=== PATIENT | male | born 1940 ===

== ENCOUNTER 2024-07-29 12:41 | Inpatient (IN) | payer OTHER, MEDICARE ==
--- OUTSIDE RECORDS SUMMARY | 2024-07-31 13:43 | XMS REPORT | Continuity of Care Document ---
Author Name Unknown Address [address] [place] [address] Organization [facility] [place] Address [address] [place] [address] Care Team Providers Care Seasonal Tax Preparer Name Role Phone Aydee Larsen Primary Care Physician Aydee Larsen Attending Clinician Unavail able Ford Daniels DO Attending Clinician [phone] Celestine Clinton MD Attending Clinician [phone] Hyacinth Tsang MD Attending Clinician CELESTINE CLINTON Attending Clinician Unavailable Hyacinth Tsang MD Admitting Clinician [phone] HYACINTH TSANG Admitting Clinician Unavailable Payers Payer Name Policy Type Policy Number Effective Date Expirati on Date Source [employer] MEDICARE SUPPLEMENT [id number] 2024 00:00:00 Problems Condition Name Condition Details Condition Category Status Onset Date Resolution Date Last Treatment Date Treating Clinician Comments Source Obesity (BMI 30-39.9) Obesity (BMI 30-39.9) Disease Active 07-31 00:00: 00 [facility] Coronary artery disease involving [place] coronary artery of [place] heart with angina pectoris Coronary artery disease involving [place] coronary artery of [place] heart with angina pectoris Disease Active 07-24 00:00: 00 [facility] Elevated troponin I level Elevated troponin I level Disease Active 07-24 00:00: 00 [facility] Elevated brain natriureti c peptide (BNP) level Elevated brain natriureti c peptide (BNP) level Disease Active 07-24 00:00: 00 [facility] Essential hypertensi on Essential hypertensi on Disease Active 07-24 00:00: 00 [facility] Dyslipidem ia Dyslipidem ia Disease Active 07-24 00:00: 00 [facility] 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 Disease Active 07-24 00:00: 00 [facility] Acute respirator y failure with hypoxemia Acute respirator y failure with hypoxemia Disease Active 07-23 00:00: 00 [facility] [id number] Congestive heart failure, unspecifie d HF chronicity , unspecifie d heart failure type Problem [facility] [id number] Overweight Problem Com [facility] [id number] Paroxysmal a-fib Problem [facility] Acute on chronic systolic heart failure Acute on chronic systolic (congestiv e) heart failure Problem [facility] Hypertensi ve heart failure Hypertensi ve heart disease with heart failure Problem [facility] [id number] Compressio n fracture of L1 vertebra with delayed healing, subsequent encounter Problem [facility] [id number] Dysphagia, unspecifie d type Problem [facility] [id number] Mild protein-ca raji malnutriti on Problem [facility] [id number] Mixed hyperlipid emia Problem [facility] [id number] Stented coronary artery Problem [facility] [id number] Seasonal allergies Problem [facility] [id number] Aortic valve stenosis, etiology of cardiac valve disease unspecifie d Problem [facility] [id number] Chronic kidney disease, unspecifie d Problem [facility] [id number] Gastroesop hageal reflux disease without esophagiti s Problem [facility] [id number] Normocytic anemia Problem [facility] [id number] Subclinica l hypothyroi dism Problem [facility] [id number] Vitamin D deficiency Problem [facility] Allergies, Adverse Reactions, Alerts Allergy Name Allergy Type Status Severity Reaction(s) Onset Date Inactive Date Treating Clinician Comments Source Midazola m Propensi ty to adverse reaction s Active Other - See comments 07-23 00:00: 00 Hyper and hypotensi on, irregular breathing [facility] MIDAZOLA M DRUG INGREDI Active Other-Cmnt 07-23 00:00: 00 [facility] midazola m midazola m Active Unknown [facility] Social History Social Habit Start Date Stop Date Quantity Comments Source History of Tobacco Use [facility] Sexual orientation [facility] History of Social function 2024-07-24 00:00:00 2024-07-24 00:00:00 [facility] Sex assigned at 1940 00:00:00 1940 00:00:00 [facility] Smoking Status Start Date Stop Date Source Tobacco smoking consumption unknown [facility] Former Smoker 2024-06-02 00:00:00 2024-06-02 00:00:00 [facility] Medications Ordered Medication Name Filled Medication Name Start Date Stop Date Current Medication? Ordering Clinician Indication Dosage Frequency Signature (SIG) Comments Components Source levothyroxi ne 25 mcg tablet 07-31 13:02: 54 Yes 25ug Take 1 tablet by mouth every morning. [facility] clopidogreL 75 mg tablet 07-31 13:02: 54 Yes 75mg Take 1 tablet by mouth in the morning. [facility] cetirizine (ZYRTEC) 10 mg tablet 07-31 13:02: 54 Yes 10mg Take 1 tablet by mouth in the morning. [facility] atorvastati n 40 mg tablet 07-31 13:02: 54 Yes 40mg Take 1 tablet by mouth at bedtime. [facility] doxazosin 2 mg tablet 07-31 13:02: 54 Yes 2mg Take 1 tablet by mouth at bedtime. [facility] meclizine 25 mg tablet 07-31 13:02: 54 Yes 25mg Take 1 tablet by mouth 2 (two) times daily as needed for Dizziness. [facility] ondansetron 4 mg tablet 07-31 13:02: 54 Yes 4mg Take 1 tablet by mouth every 8 (eight) hours. [facility] polyethylen e glycol 3350 (MIRALAX) 17 gram powder 07-31 13:02: 54 Yes 1{packe t} Take 1 Packet by mouth once daily as needed for Constipati on. [facility] amiodarone 200 mg tablet 07-31 13:02: 54 Yes 200mg Take 1 tablet by mouth in the morning. [facility] furosemide 20 mg tablet 07-31 13:02: 51 07-31 00:00 :00 No 20mg Take 1 tablet by mouth every Wednesday, Wednesday and Wednesday. [facility] isosorbide dinitrate 30 mg tablet 07-31 13:02: 51 07-31 00:00 :00 No 60mg Take 2 tablets by mouth in the morning. [facility] amLODIPine 5 mg tablet 07-31 13:02: 51 07-31 00:00 :00 No 5mg Take 1 tablet by mouth in the morning and 1 tablet in the evening. [facility] apixaban (ELIQUIS) 5 mg tablet 07-31 13:02: 51 07-31 00:00 :00 No 5mg Take 1 tablet by mouth in the morning and 1 tablet in the evening. [facility] metoprolol tartrate 25 mg tablet 07-31 13:02: 51 07-31 00:00 :00 No 25mg Take 1 tablet by mouth in the morning and 1 tablet in the evening. [facility] fluticasone 27.5 mcg/actuati on nasal spray 07-31 13:: 07-31 00:00 :00 No 1{spray } Use 1 [place] in each nostril in the morning and 1 [place] in the evening. [facility] triamcinolo ne 0.5 % cream 07-31 13:02: 07-31 00:00 :00 No 1{squir t} Apply 1 Squirt to area(s) 3 (three) times daily as needed for Rash or Itching (Apply to scrotal area.). [facility] diphenhydrA MINE (BENADRYL ALLERGY) 50 mg tablet 07-31 13:: 07-31 00:00 :00 No 50mg Take 1 tablet by mouth at bedtime as needed for Sleep. [facility] furosemide 40 mg tablet 07-31 00:00: 00 08-31 04:59 :00 Yes [id number] 40mg Take 1 tablet by mouth every morning and evening for 30 days. [facility] melatonin 3 mg tablet 07-31 00:00: 00 08-31 04:59 :00 Yes [id number] 3mg Take 1 tablet by mouth at bedtime for 30 days. [facility] pantoprazol e 2 mg/mL oral suspension 07-31 00:00: 00 08-31 04:59 :00 Yes [id number] 40mg Take 20 mL by mouth in the morning and 20 mL in the evening. Do all this for 30 days. [facility] cefdinir 300 mg capsule 07-31 00:00: 00 08-05 04:59 :00 Yes [id number] 300mg Take 1 capsule by mouth in the morning and 1 capsule in the evening. Do all this for 4 days. [facility] cefTRIAXone (ROCEPHIN) 1,000 mg in water for injection, sterile 10 mL IV Push cefTRIAXone (ROCEPHIN) 1,000 mg in water for injection, sterile 10 mL IV Push 07-30 17:00: 00 07-31 18:02 :54 Yes 1000mg 1,000 mg, Intravenou s, Q24H ABX, 5 doses, First dose on Wed07/30/24 at 1200, Last dose on [place] 08/03/24 at 1200, 10 mL, Reason for Anti-Infec tive: Documented Infection, Documented Infection Site: Urine, Duration of therapy: Other (days), Other (days): [address] [facility] pantoprazol e (PROTONIX) 2 mg/mL oral suspension 40 mg pantoprazol e (PROTONIX) 2 mg/mL oral suspension 40 mg 07-30 13:15: 00 Yes 40mg 40 mg, Oral, BID, First dose on [place] 07/30/24 at 0815, Until Discontinu ed, Routine [facility] furosemide (LASIX) tablet 40 mg furosemide (LASIX) tablet 40 mg 07-29 22:00: 00 Yes 40mg 40 mg, Oral, QAM+PM, First dose (after last modificati on) on [facility] 07/29/24 at 1700, Until Discontinu ed, Routine [facility] acetaminoph en (TYLENOL) tablet 650 mg acetaminoph en (TYLENOL) tablet 650 mg 07-29 17:45: 00 07-29 20:43 :00 Yes 650mg 650 mg, Oral, ONCE, 1 dose, On [facility] 07/29/24 at 1245, Routine [facility] pantoprazol e (PROTONIX) EC tablet 40 mg pantoprazol e (PROTONIX) EC tablet 40 mg 07-29 16:45: 00 07-30 13:12 :19 Yes 40mg 40 mg, Oral, BID, First dose on [facility] 07/29/24 at 1145, Until Discontinu ed, Routine [facility] spironolact one (ALDACTONE) tablet 25 mg spironolact one (ALDACTONE) tablet 25 mg 07-29 15:30: 00 Yes 25mg 25 mg, Oral, DAILY, First dose on [facility] 07/29/24 at 1030, Until Discontinu ed, [facility] escitalopra m oxalate (LEXAPRO) tablet 10 mg escitalopra m oxalate (LEXAPRO) tablet 10 mg 07-29 14:00: 00 Yes 10mg 10 mg, Oral, DAILY, First dose on Wed07/29/24 at 0900, Until Discontinu ed, Routine [facility] furosemide (LASIX) tablet 40 mg furosemide (LASIX) tablet 40 mg 07-29 14:00: 00 07-29 15:20 :41 Yes 40mg 40 mg, Oral, DAILY, First dose on Wed07/29/24 at 0900, Until Discontinu ed, Routine [facility] melatonin (MELATIN) tablet 3 mg melatonin (MELATIN) tablet 3 mg 07-29 02:00: 00 Yes 3mg 3 mg, Oral, QHS, First dose on Wed07/28/24 at 2100, Until Discontinu ed, Routine [facility] ferrous sulfate 300 mg (60 mg iron)/5 mL solution 300 mg ferrous sulfate 300 mg (60 mg iron)/5 mL solution 300 mg 07-28 14:45: 00 Yes 300mg 300 mg, Oral, DAILY, First dose on Wed07/28/24 at 0945, Until Discontinu ed, Routine [facility] Potassium Bicarb-Citr ic Acid (EFFER-K) effervescen t tablet 40 mEq Potassium Bicarb-Citr ic Acid (EFFER-K) effervescen t tablet 40 mEq 07-28 00:30: 00 07-28 01:11 :00 Yes 40meq 40 mEq, Oral, ONCE, 1 dose, On Wed07/27/24 at 1930, Routine [facility] amiodarone (PACERONE) tablet 100 mg amiodarone (PACERONE) tablet 100 mg 07-27 14:00: 00 07-31 18:02 :54 Yes 100mg 100 mg, Oral, DAILY, First dose on Wed07/27/24 at 0900, Until Discontinu ed, Routine [facility] aspirin chewable tablet 81 mg aspirin chewable tablet 81 mg 07-27 14:00: 00 07-29 16:27 :31 Yes 81mg 81 mg, Oral, DAILY, First dose on Wed07/27/24 at 0900, Until Discontinu ed, Routine [facility] sennosides- docusate sodium (SENOKOT-S) 8.6-50 mg per tablet 1 tablet sennosides- docusate sodium (SENOKOT-S) 8.6-50 mg per tablet 1 tablet 07-26 16:30: 00 Yes 1{tbl} 1 tablet, Oral, DAILY, First dose on Wed07/26/24 at 1130, Until Discontinu ed, Routine [facility] polyethylen e glycol 3350 powder 17 g polyethylen e glycol 3350 powder 17 g 07-26 16:30: 00 07-31 18:02 :54 Yes 17g 17 g, Oral, DAILY, First dose on Wed07/26/24 at 1130, Until Discontinu ed, Routine [facility] furosemide (LASIX) injection 20 mg furosemide (LASIX) injection 20 mg 07-26 14:00: 00 07-28 19:47 :50 Yes 20mg 20 mg, Slow IV Push, DAILY, First dose (after last modificati on) on Wed07/26/24 at 0900, Until Discontinu ed, Routine [facility] ondansetron (ZOFRAN) tablet 4 mg 07-25 19:45: 00 07-31 18:02 :54 No 4mg 4 mg, Oral, Q6HPRN, Starting on Wed07/25/24 at 1445, Until Wed07/31/24 at 1302, Routine, Nausea and Vomiting (N/V) [facility] acetaminoph en (TYLENOL) tablet 650 mg acetaminoph en (TYLENOL) tablet 650 mg 07-25 18:15: 00 07-25 18:52 :00 Yes 650mg 650 mg, Oral, ONCE, 1 dose, On Wed07/25/24 at 1315, Routine [facility] aspirin EC tablet 81 mg aspirin EC tablet 81 mg 07-25 15:15: 00 07-27 13:23 :25 Yes 81mg 81 mg, Oral, DAILY, First dose on Wed07/25/24 at 1015, Until Discontinu ed, Routine [facility] levothyroxi ne (SYNTHROID) tablet 25 mcg levothyroxi ne (SYNTHROID) tablet 25 mcg 07-25 11:00: 00 07-31 18:02 :54 Yes 25ug 25 mcg, Oral, QAM-0600, First dose on Wed07/25/24 at 0600, Until Discontinu ed, Routine [facility] doxazosin (CARDURA) tablet 2 mg doxazosin (CARDURA) tablet 2 mg 07-25 02:00: 00 07-31 18:02 :54 Yes 2mg 2 mg, Oral, QHS, First dose on Wed07/24/24 at 2100, Until Discontinu ed, Routine [facility] atorvastati n (LIPITOR) tablet 40 mg atorvastati n (LIPITOR) tablet 40 mg 07-25 02:00: 00 07-31 18:02 :54 Yes 40mg 40 mg, Oral, QHS, First dose on Wed07/24/24 at 2100, Until Discontinu ed, Routine [facility] perflutren protein-A microsphr (OPTISON) injection 3 mL 07-24 15:00: 00 07-24 15:00 :00 No [id number] 3mL 3 mL, IV Push, ONCE, 1 dose, On Wed07/24/24 at 1000, Routine [facility] cetirizine (ZYRTEC) tablet 10 mg cetirizine (ZYRTEC) tablet 10 mg 07-24 14:00: 00 07-31 18:02 :54 Yes 10mg 10 mg, Oral, DAILY, First dose on Wed07/24/24 at 0900, Until Discontinu ed, Routine [facility] clopidogreL (PLAVIX) 75 mg tablet 75 mg clopidogreL (PLAVIX) 75 mg tablet 75 mg 07-24 14:00: 00 07-31 18:02 :54 Yes 75mg 75 mg, Oral, DAILY, First dose on Wed07/24/24 at 0900, Until Discontinu ed, Routine [facility] sodium ferric gluconate (FERRLECIT) 125 mg in NaCl 0.9% (NS) 100 mL IV piggyback sodium ferric gluconate (FERRLECIT) 125 mg in NaCl 0.9% (NS) 100 mL IV piggyback 07-24 14:00: 00 07-26 15:15 :00 Yes 125mg 125 mg, IV Piggyback, DAILY, 3 doses, First dose on Wed07/24/24 at 0900, Last dose on Wed07/26/24 at 0900, Administer over 60 Minutes, 100 mL [facility] furosemide (LASIX) injection 40 mg furosemide (LASIX) injection 40 mg 07-24 14:00: 00 07-25 15:11 :26 Yes 40mg 40 mg, Slow IV Push, DAILY, First dose on Wed07/24/24 at 0900, Until Discontinu ed, Routine [facility] levothyroxi ne (SYNTHROID) injection 18 mcg levothyroxi ne (SYNTHROID) injection 18 mcg 07-24 14:00: 00 07-24 23:14 :32 Yes 18ug 18 mcg, Intravenou s, DAILY, First dose on Wed07/24/24 at 0900, Until Discontinu ed, Indication : Patient NPO >= 5 days [facility] ondansetron (ZOFRAN) tablet 4 mg ondansetron (ZOFRAN) tablet 4 mg 07-24 11:00: 00 07-25 19:31 :58 Yes 4mg 4 mg, Oral, Q8H, First dose on Wed07/24/24 at 0600, Until Discontinu ed, Routine [facility] meclizine (ANTIVERT) tablet 25 mg 07-24 06:07: 37 07-31 18:02 :54 No 25mg [facility] alum-mag hydroxide-s imeth (MAG-AL PLUS) 200-200-20 mg/5 mL suspension 30 mL alum-mag hydroxide-s imeth (MAG-AL PLUS) 200-200-20 mg/5 mL suspension 30 mL 07-24 05:52: 48 07-31 18:02 :54 Yes 30mL 30 mL, Oral, Q4HPRN, Starting on Wed07/24/24 at 0052, Until Wed07/31/24 at 1302, Routine, Indigestio n [facility] heparin 25,000 Units/250 mL (Premixed Bag) in 0.45 % NS heparin 25,000 Units/250 mL (Premixed Bag) in 0.45 % NS 07-24 04:15: 00 07-24 13:56 :03 Yes 0U/h 0-1,600 Units/hr (0-16 mL/hr), IV Infusion, CONTINUOUS , Starting on Wed07/23/24 at 2315, Initiate infusion at 950 Units/hr (calculate d at 12 units/kg/h r, rounded to the closest 50 units) DO NOT Exceed the MAXIMUM 1,000 units/hr for initiation of heparin infusion. CAUTION - If LMWH given in ER, AVOID bolus and start next dose/drip 12 hrs after ER dosage. Must program rate using programmab le infusion pump. Check with the ordering provider first prior to any administra tion should the patient be on existing/a dditional anticoagul ant therapy. Range, Dosing and Testing - aPTT < 40: Bolus 3000 units, increase rate 100 units/hr. - aPTT 40-49: Increase rate 50 units/hr. - aPTT 50-70: NO CHANGE. - aPTT 71-85: Decrease rate 50 units/hr. - aPTT 86-100: Hold 30 minutes, decrease rate 100 units/hr. - aPTT 101-150: Hold 60 minutes, decrease rate 150 units/hr. - aPTT > 150: Hold 60 minutes, decrease rate 300 units/hr. Check aPTT 6 hours after initiation , then Q6H after every change, aPTT Q12H once therapeuti c levels are reached. DO NOT ADJUST INITIAL BOLUS OR INITIAL INFUSION RATE. [facility] HEPARIN SODIUM (PORCINE) 1,000 UNIT/ML BOLUS ACS ORDER SET [id number] 2102-0 4-21 04:15: 00 07-24 05:36 :00 Yes 4000U 4,000 Units, IV Push, ONCE, 1 dose, On Wed07/23/24 at 2315, [place] [facility] aspirin chewable tablet 162 mg aspirin chewable tablet 162 mg 07-24 04:15: 00 07-24 05:34 :00 Yes 162mg 162 mg, Oral, ONCE, 1 dose, On Wed07/23/24 at 2315[facility]IX[facility] injection 40 mg 07-24 03:45: 00 07-24 04:14 :00 No 40mg 40 mg, IV Push, ONCE, 1 dose, On Wed07/23/24 at 2245, [facility] iop[facility] (ISOVUE 370-500 mL) injection 65 mL 07-24 03:00: 00 07-24 03:00 :00 No [id number] 65mL 65 mL, Intravenou s, ONCE, 1 dose, On [place] 07/23/24 at 2200, Routine [facility] ondansetron (ZOFRAN (PF)) injection 4 mg 07-24 01:00: 00 07-24 00:49 :00 No 4mg 4 mg, Slow IV Push, ONCE, 1 dose, On [place] 07/23/24 at 2000, Administer over 2-5 Minutes, 2 mL [facility] Levothyroxi ne Sodium 25 MCG Levothyroxi ne Sodium 25 MCG 3-03 00:00: 00 No QD Levothyrox ine Sodium 25 MCG Fluticasone Propionate 50 MCG/ACT Fluticasone Propionate 50 MCG/ACT No 1{spray _in_eac h_nostr il} BID Fluticason e Propionate 50 MCG/ACT MiraLax 17 GM/SCOOP MiraLax 17 GM/SCOOP No QD MiraLax 17 GM/SCOOP Senna 8.6 MG Senna 8.6 MG No 1{table t} BID Senna 8.6 MG Clopidogrel Bisulfate 75 MG Clopidogrel Bisulfate 75 MG No 1{table t} QD Clopidogre l Bisulfate 75 MG Isosorbide Mononitrate ER 30 MG Isosorbide Mononitrate ER 30 MG No 2{table ts} QD Isosorbide Mononitrat e ER 30 MG Zofran Zofran No 1{patch _to_ski n} Zofran Metoprolol Succinate ER 50 MG Metoprolol Succinate ER 50 MG No .5{tabl et} BID Metoprolol Succinate ER 50 MG Furosemide 20 MG Furosemide 20 MG No 1{table t} QD Furosemide 20 MG Eliquis 5 MG Eliquis 5 MG No 1{table t} BID Eliquis 5 MG amLODIPine Besylate 5 MG amLODIPine Besylate 5 MG No 1{table t} BID amLODIPine Besylate 5 MG Amiodarone HCl 200 MG Amiodarone HCl 200 MG No 1{table t} QD Amiodarone HCl 200 MG Doxazosin Mesylate 2 MG Doxazosin Mesylate 2 MG No 1{table t} QD Doxazosin Mesylate 2 MG Benadryl Allergy 25 MG Benadryl Allergy 25 MG No 1{table t_at_be dtime_a s_neede d} QD Benadryl Allergy 25 MG Atorvastati n Calcium 40 MG Atorvastati n Calcium 40 MG No 1{table t} QD Atorvastat in Calcium 40 MG Meclizine HCl 25 MG Meclizine HCl 25 MG No 1{table t_as_ne eded} Meclizine HCl 25 MG Cetirizine HCl 10 MG Cetirizine HCl 10 MG No 1{table t} QD Cetirizine HCl 10 MG Vital Signs Vital Name Observation Time Observation Value Comments S ource Systolic blood pressure 2024-07-31 17:00:00 150 mm[Hg] [facility] Diastolic blood pressure 2024-07-31 17:00:00 63 mm[Hg] [facility] Heart rate 2024-07-31 17:00:00 67 /min [facility] Respiratory rate 2024-07-31 17:00:00 19 /min [facility] Oxygen saturation in Arterial blood by Pulse oximetry 2024-07-31 17:00:00 93 /min [facility] Body temperature 2024-07-31 16:26:00 36.78 Celia [facility] Body weight 2024-07-31 08:32:00 84.5 kg [facility] BMI 2024-07-31 08:32:00 30.07 kg/m2 [facility] Body height 2024-07-24 05:31:00 167.6 cm [facility] height 2024-05-29 09:15:00 65 [in_i] Commo n [facility] weight 2024-05-29 09:15:00 166 [lb_av] Comm on [facility] temperature 2024-05-29 09:15:00 97.5 [degF] Com mon [facility] bmi 2024-05-29 09:15:00 27.62 kg/m2 Comm on [facility] oximetry 2024-05-29 09:15:00 93 % Commo n [facility] blood pressure systolic 2024-05-29 09:15:00 128 mm[Hg] [facility] blood pressure diastolic 2024-05-29 09:15:00 70 mm[Hg] [facility] Procedures Procedure Date / Time Performed Performing Clinician Source N-TERMINAL PRO-BNP 2024-07-31 09:31:00 Celestine Clinton [facility] MAGNESIUM 2024-07-31 09:31:[facility] (NA, K, CL, CO2, GLUCOSE, BUN, CREATININE, CA) 2024-07-31 09:31:00 Celestine Clinton [facility] CBC WITHOUT DIFF 2024-07-31 09:31:00 [facility]24-[facility]-30 14:30[facility] 2024-07-30 10:47:00 Celestine Clinton [facility] MAGNESIUM 2024-07-30 10:47:00 [facility] (NA, K, CL, CO2, GLUCOSE, BUN, CREATININE, CA) 2024-07-30 10:47:00 Celestine Clinton [facility] CBC WITH DIFF 2024-07-30 10:47:00 Celestine Clinton [facility] URINALYSIS 2024-07-29 23:20:00 [facility] 2024-07-29 20:59:[facility] 2024-07-29 18:00:00 Celestine Clinton [facility] CBC WITHOUT DIFF 2024-07-29 15:31:[address] [address] N-TERMINAL PRO-BNP 2024-07-29 10:54:00 Marshal Friedman [facility] BASIC METABOLIC PANEL (NA, K, CL, CO2, GLUCOSE, BUN, CREATININE, CA) 2024-07-29 10:54:00 Julien [facility] CBC WITH DIFF 2024-07-29 10:54:00 [place] [facility] XR CHEST 1 VW 2024-07-28 20:56:25 [facility] N-TERMINAL PRO-BNP 2024-07-28 07:28:00 Marshal Friedman [facility] MAGNESIUM 2024-07-28 07:28:00 [place] [facility] BASIC METABOLIC PANEL (NA, K, CL, CO2, GLUCOSE, BUN, CREATININE, CA) 2024-07-28 07:28:00 Julien [facility] CBC WITH DIFF 2024-07-28 07:28:00 [place] [facility] ACUTE CARE ARTERIAL BLOOD GAS 2024-07-27 20:44:00 Julien [facility] MAGNESIUM 2024-07-27 08:39:00 [place] [facility] BASIC METABOLIC PANEL (NA, K, CL, CO2, GLUCOSE, BUN, CREATININE, CA) 2024-07-27 08:39:00 Julien [facility] LIPID PANEL ([id number])(TOTAL CHOLESTEROL, TRIGLYCERIDES, HDL) 2024-07-27 08:39:00 Marshal Friedman [facility] CBC WITH DIFF 2024-07-27 08:39:00 [facility] N-TERMINAL PRO-BNP 2024-07-26 08:11:00 [facility] 2024-07-26 08:11:00 [facility] BASIC METABOLIC PANEL (NA, K, CL, CO2, GLUCOSE, BUN, CREATININE, CA) 2024-07-26 08:11:00 [facility] CBC WITHOUT DIFF 2024-07-26 08:11:00 Hyacinth Tsang [facility] ACUTE CARE VENOUS BLOOD GAS 2024-07-26 08:09:00 [facility] OCCULT (GUAIAC) BLOOD 2024-07-25 23:41:00 Honey Tsang [facility] TRANSFUSE PACKED RBC 2024-07-25 19:25:00 Ramon Clinton [facility] PREPARE PACKED RBC 2024-07-25 19:13:58 [facility] ABORH CONFIRMATION (LAB ONLY) 2024-07-25 16:33:00 [facility] ACUTE CARE VENOUS BLOOD GAS 2024-07-25 16:31:00 [facility] HB ABO GROUPING 2024-07-25 14:23:[address] [facility] PHOSPHORUS 2024-07-25 09:33:00 [facility] MAGNESIUM 2024-07-25 09:33:00 [facility] BASIC METABOLIC PANEL (NA, K, CL, CO2, GLUCOSE, BUN, CREATININE, CA) 2024-07-25 09:33:00 [facility] CBC WITHOUT DIFF 2024-07-25 09:33:00 Hyacinth Tsang [facility] GLYCOSYLATED HEMOGLOBIN (A1C) 2024-07-25 09:33:00 [facility] TROPONIN I 2024-07-25 04:10:00 [facility] TROPONIN I 2024-07-24 22:25:00 [facility] ACUTE CARE ARTERIAL BLOOD GAS 2024-07-24 20:02:00 [facility]IN I 2024-07-24 15:27:00 [facility] ACTIVATED PARTIAL THRMPLAS HELEN 2024-07-24 15:27:00 Priscilla [facility] AC ABG + LACTIC ACID 2024-07-24 14:54:00 Mary Beth [facility] TRANSTHORACIC ECHO (TTE) COMPLETE W/ CONTRAST 2024-07-24 14:30:00 Priscilla [facility] ACUTE CARE ARTERIAL BLOOD GAS 2024-07-24 10:43:00 Prisc[facility] URINALYSIS 2024-07-24 09:19:00 Priscilla [facility] URINE CULTURE 2024-07-24 09:19:00 Priscilla [facility] FERRITIN SERUM 2024-07-24 09:14:00 Priscilla [facility] TRANSFERRIN 2024-07-24 09:14:00 [facility] IRON BINDING CAPACITY 2024-07-24 09:14:00 Priscilla [facility] TROPONIN I 2024-07-24 09:14:00 Priscilla [facility] BASIC METABOLIC PANEL (NA, K, CL, CO2, GLUCOSE, BUN, CREATININE, CA) 2024-07-24 09:14:00 Priscilla [facility] IRON PANEL 2024-07-24 09:14:00 Priscilla [facility] CBC WITH DIFF 2024-07-24 09:14:00 Priscilla [facility] INFLUENZA A/B RSV COVID NAAT 2024-07-24 05:21:00 Priscilla [facility] LAB ONLY COVID INTERPRETATION 2024-07-24 05:21:00 Priscilla [facility] PROTHROMBIN TIME / INR 2024-07-24 05:19:00 Priscilla [facility] ACTIVATED PARTIAL THRMPLAS HELEN 2024-07-24 05:19:00 Priscilla [facility] ACUTE CARE ARTERIAL BLOOD GAS 2024-07-24 02:13:00 Ford Daniels [facility] CT CHEST PULMONARY ANGIOGRAM 2024-07-24 02:05:17 [facility] XR CHEST 1 VW 2024-07-24 01:25:26 Ford Daniels [facility] HB ECG ROUTINE & RHYTHM STRIP 2024-07-24 00:46:06 [facility] N-TERMINAL PRO-BNP 2024-07-24 00:41:00 [facility] TROPONIN I 2024-07-24 00:41:00 Ford Daniels [facility] COMP. METABOLIC PANEL (71183) 2024-07-24 00:41:00 Ford Daniels [facility] CBC WITH DIFF 2024-07-24 00:41:00 Ford Daniels [facility] CRITICAL CARE 2024-07-24 00:20:00 Ford Daniels [facility] Plan of Care Planned Activity Planned Date Details Comments Source Medication 2024-08-01 00:00:00 escitalopram oxalate 10 mg tablet [code = 900951] [facility] Medication 2024-08-01 00:00:00 ferrous sulfate 300 mg (60 mg iron)/5 mL solution [code = 044090] [facility] Medication 2024-08-01 00:00:00 sennosides-docusate sodium 8.6-50 mg per tablet [code = 243983] [facility] Medication 2024-08-01 00:00:00 spironolactone 25 mg tablet [code = 095266] [facility] Encounters Start Date/Time End Date/Time Encounter Type Admission Type Attending Clinicians Care Facility Care Department Encounter ID Source 2024-05-29 09:50:01 Outpatient Aydee Larsen [facility]LMLC STLMLC [id number] [facility] 2024-07-23 19:32:00 2024-07-31 13:00:00 Hospital Encounter Ford DanielsCelestineHyacinth [facility] [id number] [facility] 2024-07-23 19:32:00 2024-07-31 13:00:00 Inpatient X ADOLPH CL[facility]ONLANI [facility] [id number] [facility] 2024-07-28 00:00:00 2024-07-28 00:00:00 (TEL) STLMLC STLMLC [id number] [facility] 2024-06-27 00:00:00 2024-06-27 00:00:00 (TEL) STLMLC STLMLC [id number] [facility] 2024-06-19 00:00:00 2024-06-19 00:00:00 (TEL) STLMLC STLMLC [id number] [facility] 2024-06-16 00:00:00 2024-06-16 00:00:00 (TEL) STLMLC STLMLC [id number] [facility] 2024-06-05 00:00:00 2024-06-05 00:00:00 (TEL) STLMLC STLMLC [id number] [facility] 2024-06-05 00:00:00 2024-06-05 00:00:00 OFFICE VISIT ESTAB PT LEVEL 4 STLMLC STLMLC [id number] [facility] 2024-05-30 00:00:00 2024-05-30 00:00:00 (TEL) STLMLC STLMLC [id number] [facility] 2024-05-29 00:00:00 2024-05-29 00:00:00 OFFICE VISIT NEW PT LEVEL 5 STLMLC STLMLC [id number] [facility] 2024-05-29 00:00:00 2024-05-29 00:00:00 (TEL) STLMLC STLMLC [id number] [facility] 2024-05-29 00:00:00 2024-05-29 00:00:00 (TEL) STLMLC STLMLC [id number] [facility] 2024-05-29 00:00:00 2024-05-29 00:00:00 (TEL) STLMLC STLMLC [id number] [facility] Results Test Description Test Time Test Comments Results Result Co mments Source [facility] [id number] 01:19:10EXAM: XR CHEST 1 VW CLINICAL HISTORY: SOB Portable COMPARISON: XR CHEST 1 VW on DOS: 07/23/24 XR CHEST 1 VW on DOS: 07/23/24 TECHNIQUE: Single frontal view of the chest performed. FINDINGS: Shallow inspiration. ?Moderate bibasilar atelectasis and small [facility] Arterial Blood Gas.2024-07-27 20:50:34* Test Item Value Reference Range Interpretation Comme nts PH (test code = 2) 7.39 7.35-7.45 PCO2 (test code = 7944239823) 55 35-45 H PO2 (test code = 7408015757) 72 80-100 L HCO3 (test code = 0191635057) 32 22-26 H BE (test code = 3266675201) 6.3 -3.0-3.0 H Lab Interpretation (test cod e = 77097-8) Abnormal [facility] HospitalN-Terminal Ify-[id number] 09:27:17* Test Item Value Reference Range Interpretation Comme nts NT-proBNP (test code = 88983-6) 1240 pg/mL <=125 ANDREW (test code = ANDREW) Result Indeterminate-Consid er causes of NT-proBNP elevation other than Heart failure such as acute coronary syndrome, pulmonary embolism, pulmonary hypertension, sepsis, stroke, and renal dysfunction. Lab Interpretation (test code = 18811-5) Abnormal [facility] Metabolic Panel (NA, K, CL, CO2, GLUCOSE, BUN, CREATININE, CA)2024-07-26 09:25:36* Test Item Value Reference Range Interpretation Comme nts NA (test code = 1505545525) 139 mmol/L 135-145 K (test code = 9853205626) 3.6 mmol/L 3.5-5.0 CL (test code = 8501808925) 99 mmol/L 98-108 CO2 TOTAL (test code = 9144994602) 34 mmol/L 23-31 H AGAP (test code = 2365303124) 6 2-16 BUN (test code = 1545638939) 41 mg/dL 7-23 H GLUCOSE (test code = 3964125447) 87 mg/dL 70-110 CREATININE (test code = 2160-0) 1.49 mg/dL 0.60-1.25 H CALCIUM (test code = 2154492076) 8.8 mg/dL 8.6-10.6 eGFR (test code = 35959-9) 46.6 mL/min/1.73m2 CKD-EPI eGFR (2020). Assuming creatinine has been stable day-to-day for at least three months, the eGFR indicates Category G3a (45 - 59 mL/min/1.73 m2) Lab Interpretation (test code = 64065-1) Abnormal [facility] HospitalMagnesium2025-04-23 09:18:16* Test Item Value Reference Range Interpretation Comme nts MAGNESIUM (test code = 2621892870) 2.3 mg/dL 1.7-2.4 Lab Interpretation (test cod e = 73937-2) Normal [facility] [id number] 08:43:31* Test Item Value Reference Range Interpretation Comme nts WBC (test code = 6690-2) 13.57 4.20-10.70 H RBC (test code = 789-8) 2.74 4.26-5.52 L HGB (test code = 718-7) 7.7 g/dL 12.2-16.4 L HCT (test code = 4544-3) 25.5 % 38.4-49.3 L MCH (test code = 785-6) 28.1 pg 26.1-32.7 MCV (test code = 787-2) 93.1 fL 81.7-95.6 MCHC (test code = 786-4) 30.2 g/dL 31.2-35.0 L PLT (test code = 777-3) 211 150-328 MPV (test code = 34444-9) 10.3 fL 9.8-13.0 RDW-CV (test code = 788-0) 16.8 % 12.1-15.4 H RDW-SD (test code = 93408-5) 57.1 fL 38.5-51.6 H NRBC x10^3 (test code = 9400226247) See_Comment [Automated messa ge] The system which generated this result transmitted reference range: 10*3/?L. The reference range was not used to interpret this result as normal/abnormal. NRBC/100 WBC (test code = 0363590972) 0 0.0-10.0 IPF % (test code = 9877800715) Lab Interpretation (test code = 44690-3) Abnormal [facility] Venous Blood [id number] 08:13:05 * Test Item Value Reference Range Interpretation Comme nts PH (test code = 3947466812) 7.37 7.32-7.42 PCO2 JOY (test code = 3891852128) 57 41-51 H PO2 JOY (test code = 7275804196) 34 25-40 HCO3 JOY (test code = 5122849710) 32 24-28 H AC VBE(BEAKER) (test code = 0062406097) 5.8 mEq/L Lab Interpretation (test cod e = 46242-3) Abnormal [facility] HospitalPrepare Packed RBC (in units), 1 Units 2024-07-25 19:13:58* Test Item Value Reference Range Interpretation Comme nts Cross Match Result (test code = 4409) Compatible ISBT Blood Type Code (test code = 025417) 6200 Unit Blood Type (test code = 4410) A Pos Unit Number (test code = 4411) [id number] Blood Expiration Date & Time (test code = 779354) [id number] Status Information (test code = 4412) Issued Product Identification (test code = 4413) Red Blood Cells Product Code (test code = 4414) [id number] Performed at [facility] B Laboratory Services - [facility] Blood [address] [place] [id number] Free: [phone] No. [id number] [facility] HospitalABORH Confirmation (Lab Only)2024-07-25 18:13:00* Test Item Value Reference Range Interpretation Comme nts ABO & RH (test code = 20) A Positive [facility] HospitalType and Screen - ONCE [id number] 15:41:00* Test Item Value Reference Range Interpretation Comme nts ABO & RH (test code = 20) A Positive IAT (test code = 1185) Negative [facility] HospitalMagnesium2025-04-22 10:33:29* Test Item Value Reference Range Interpretation Comme nts MAGNESIUM (test code = 8654860049) 2.1 mg/dL 1.7-2.4 Lab Interpretation (test cod e = 16994-3) Normal [facility] Met[facility] (NA, K, CL, CO2, GLUCOSE, BUN, CREATININE, CA)2024-07-25 10:33:08* Test Item Value Reference Range Interpretation Comme nts NA (test code = 7136211275) 140 mmol/L 135-145 K (test code = 2820066158) 4.2 mmol/L 3.5-5.0 CL (test code = 3790302402) 100 mmol/L 98-108 CO2 TOTAL (test code = 0059308921) 38 mmol/L 23-31 H AGAP (test code = 2734132273) 2 2-16 BUN (test code = 9580885338) 49 mg/dL 7-23 H GLUCOSE (test code = 5357198393) 93 mg/dL 70-110 CREATININE (test code = 2160-0) 1.73 mg/dL 0.60-1.25 H CALCIUM (test code = 2119825728) 9.1 mg/dL 8.6-10.6 eGFR (test code = 74749-1) 38.9 mL/min/1.73m2 CKD-EPI eGFR (2020). Assuming creatinine has been stable day-to-day for at least three months, the eGFR indicates Category G3b (30 - 44 mL/min/1.73 m2) Lab Interpretation (test code = 85683-8) Abnormal [facility] HospitalPhosphorus2025-04-22 10:33:08* Test Item Value Reference Range Interpretation Comme nts PHOSPHORUS (test code = 2251710280) 4.7 mg/dL 2.5-5.0 Lab Interpretation (test cod e = 04024-6) Normal [facility] HospitalGlycosylated Hemoglobin (A1C)2024-07-25 10:17:48* Test Item Value Reference Range Interpretation Comme nts HGB A1C (test code = 4548-4) 5.4 % 4.0-5.7 ANDREW (test code = ANDREW) Reference RangesNormal: <5.7%Prediabetes: 5.7 - 6.4%Diabetes: > 6.5% Lab Interpretation (test code = 77276-1) Normal [facility] HospitalCBC Without [id number] 09:49:48* Test Item Value Reference Range Interpretation Comme nts WBC (test code = 6690-2) 9.71 4.20-10.70 RBC (test code = 789-8) 2.59 4.26-5.52 L HGB (test code = 718-7) 7.2 g/dL 12.2-16.4 L HCT (test code = 4544-3) 25 % 38.4-49.3 L MCH (test code = 785-6) 27.8 pg 26.1-32.7 MCV (test code = 787-2) 96.5 fL 81.7-95.6 H MCHC (test code = 786-4) 28.8 g/dL 31.2-35.0 L PLT (test code = 777-3) 226 150-328 MPV (test code = 53137-3) 9.7 fL 9.8-13.0 L RDW-CV (test code = 788-0) 15.6 % 12.1-15.4 H RDW-SD (test code = 89287-5) 55.1 fL 38.5-51.6 H NRBC x10^3 (test code = 5230001413) See_Comment [Automated messa ge] The system which generated this result transmitted reference range: 10*3/?L. The reference range was not used to interpret this result as normal/abnormal. NRBC/100 WBC (test code = 8198565380) 0 0.0-10.0 IPF % (test code = 1675375658) Lab Interpretation (test code = 13281-2) Abnormal [facility] HospitalTroponin [id number] 05:06:11* Test Item Value Reference Range Interpretation Comme nts TROPONIN I (test code = 9608864794) 0.049 ng/mL <=0.034 H ANDREW (test code = ANDREW) Reference (Normal) Range (defined by the 99th percentile reference limit): <= 0.034 ng/mL Note: Cardiac troponin begins to rise 3-4 hours after the onset of ischemia. Repeat in 4-6 hours if the sample was drawn within 3-4 hours of the onset of the symptom and found normal. Diagnosis of myocardial injury is made with acute changes in cTn concentrations with at least one serial sample above the 99th percentile upper reference limit (URL), taken together with the patient's clinical presentation. Biotin has been reported to cause a negative bias, interpret results relative to patient's use of biotin. Lab Interpretation (test code = 62652-1) Abnormal [facility] HospitalTransthoracic echo (TTE) [id number] 21:26:33* Test Item Value Reference Range Interpretation Comme nts Height (test code = 6708920965) 66 in Weight (test code = 7027022572) 170 lbs Systolic BP (test code = 3314968585) 134 mmHg Diastolic BP (test code = 1019385789) 44 mmHg Heart Rate (test code = 3144624813) 48 bpm BSA (test code = 6449727555) 1.87 m2 LVIDD (test code = 7890320358) 4.4 cm Left Ventricular End Diastolic Volume by Teichholz Method (test code = 5494649) 86.1 mL IVS (test code = 3838887552) 1.38 cm Interventricular Septum Diastolic Thickness by 2D (test code = 6827455) 1.38 cm LVPWD (test code = 9052140589) 1.37 cm PW (test code = 9396739774) 1.37 cm 0.6-1.1 EF(Teich) (test code = 9124842341) 52.1 % LVIDS (test code = 0569582289) 3.2 cm Left Ventricular End Systolic Volume by Teichholz Method (test code = 9997496) 41.2 mL FS (test code = 8892740083) 27 % EF - 2D (test code = 77332864) 52.1 % LVOT diameter (test code = 1975272711) 1.9 cm LVOT area (test code = 2394425088) 2.8 cm2 Ao root diam (test code = 7726061790) 3.3 cm Aortic root (test code = 8745070598) 3.3 cm Ao root annulus (test code = 0309202685) 3.3 cm LA size (test code = 4305232602) 3.3 cm E wave decelartion time (test code = 5692267705) 0.25 s MV Peak E Farzad (test code = 7082982095) 99 cm/s MV stenosis pressure 1/2 time (test code = 2172248242) 76.3 ms MV Peak A Farzad (test code = 3699159838) 90.4 cm/s E/A ratio (test code = 1609083846) 1.09 ratio MV Prop V (test code = 2499834238) 35.2 cm/s MV E/e' septal (test code = 6934781163) 7 cm/s Tapse (test code = 0071113401) 1.89 cm LVOT stroke volume (test code = 0741410146) 83.2 cm3 LVOT peak farzad (test code = 7752774285) 124.3 cm/s LVOT mn grad (test code = 8626477748) 2.5 mmHg AV LVOT peak gradient (test code = 6641760419) 6.2 mmHg LVOT peak VTI (test code = 5244072915) 29.2 cm LV V1 mean (test code = 1389348261) 72.9 cm/s Aortic valve mean velocity (test code = 5252187761) 147.7 cm/s Ao peak farzad (test code = 9478910626) 232.3 cm/s Ao VTI (test code = 9285306678) 56.1 cm AV area by cont VTI (test code = 2730262201) 1.5 cm2 AV area peak farzad (test code = 1310424551) 1.5 cm2 Ao max PG (test code = 5484617305) 21.6 mm[Hg] AV peak gradient (test code = 1653288147) 21.6 mmHg AV valve area (test code = 1737664625) 1.48 cm2 AV mean gradient (test code = 4259190888) 9.7 mmHg Radiology Study observation (narrative) (test code = 41797-7) ANDREW (test code = ANDREW) ?Right?Ventricle: Right ventricle size is normal. Normal systolic function. ?Tricuspid?Valve: Tricuspid valve structure is normal. Trace transvalvular regurgitation. Insufficient tricuspid regurgitation jet to estimate RVSP . ?Left?Ventricle: Regional wall motion abnormalities are present. See diagram for findings. Mildly reduced systolic function with a visually estimated EF of 40%. There is pseudonormal diastolic dysfunction. ?IVC/SVC: IVC was not well visualized. ?Aortic?Valve: Consistent with mild aortic stenosis. Peak velocity 2.1 m/sec. Mean gradient 9.3 mmHg. TOBIN 1.7 cm2 by CE. LVOT 2.1 cm. ?Aorta: Mildly enlarged ascending aorta and aortic root. Left VentricleLeft ventricle size is normal. Normal wall thickness. Regional wall motion abnormalities are present. See diagram for findings. Mildly reduced systolic function with a visually estimated EF of 40%. There is pseudonormal diastolic dysfunction.Right VentricleRight ventricle size is normal. Normal systolic function.Left AtriumLeft atrium size is normal.Right AtriumRight atrium size is normal.IVC/SVCIVC was not well visualized.Mitral ValveMitral valve structure is normal. Trace transvalvular regurgitation.Tricusp id ValveTricuspid valve structure is normal. Trace transvalvular regurgitation. Insufficient tricuspid regurgitation jet to estimate RVSP .Aortic ValveMildly thickened cusps. Mildly calcified cusps. Trace transvalvular regurgitation. Consistent with mild aortic stenosis. Peak velocity 2.1 m/sec. Mean gradient 9.3 mmHg. TOBIN 1.7 cm2 by CE. LVOT 2.1 cm.Pulmonic ValveNot well visualized.Ascending AortaMildly enlarged ascending aorta and aortic root.PericardiumThe pericardium is normal. No pericardial effusion.Study DetailsStudy quality experienced technical difficulty. A complete echocardiogram was performed using 2D, color flow Doppler and spectral Doppler. 3 mL of Optison ultrasound enhancing agent used.Wall Scoring BaselineScore Index: 1.29The following segments are hypokinetic: basal inferolateral, mid inferolateral, apical anterior, apical lateral and apex.All other segments are normal. [facility] 1 [id number] 10:58:09EXAM: XR CHEST 1 VW COMPARISON: None HISTORY:84 years old, Male ?with hypoxia .[facility] pulmonary [id number] 02:58:32EXAM: CT CHEST PULMONARY ANGIOGRAM CLINICAL INDICATION: 84 years old Male with Pulmonary embolism (PE)suspected, high prob Comparison: ?None TECHNIQUE: Volumetric helical CT angiogram was performed of the chest (lungapices to bases) with IV contrast. Images were reconstructed at 1.25 mmslice thickness. Axial MIPs, as well as coronal and sagittal MPRs weregenerated and reviewed. FINDINGS: Devices: None HEART AND GREAT VESSELS: The opacification of the pulmonary vasculature isappropriate. No filling defects are seen through the level of the segmentalpulmonary arteries. The pulmonary trunk is normal in caliber. The thoracic aorta is normal in caliber with ?Mild atheroscleroticcalcifications. Th ere are severe calcifications of the coronary vessels. The heart is normal in size. No pericardial abnormalities are identified.The RV to LV is normal. MEDIASTINUM AND LOWER NECK: A 6 mm polypoid nodule is seen in the rightlateral aspect of the distal trachea. The esophagus is within normallimits. The included thyroid gland appears normal. LYMPH NODES: Scattered small lymph nodes in both sides ofthe mediastinumand hilar regions, some of which are calcified. No evidence ofintrathoracic lymphadenopathy. LUNGS AND PLEURA: Elevated bilateral diaphragm with underlying lungatelectasis, more on theleft side. No suspicious nodules. Scatteredbilateral pleural calcification are seen. VISUALIZED UPPER ABDOMEN: The included solid organs and hollow viscusappear within normal limits apart from small hepatic and splenic calcifiedgranulomas. OSSEOUS STRUCTURES AND SOFT TISSUES: No focal osseous lesions are detected.Internal fixation of the left scapula. The soft tissues appear normal.[facility] Arterial Blood Gas.2024-07-24 02:26:35* Test Item Value Reference Range Interpretation Comme nts PH (test code = 2) 7.34 7.35-7.45 L PCO2 (test code = 8571024833) 56 35-45 H PO2 (test code = 3818734263) 90 80-100 HCO3 (test code = 2601248046) 29 22-26 H BE (test code = 5808354688) 2 -3.0-3.0 Lab Interpretation (test cod e = 80591-8) Abnormal [facility] HospitalTROPONIN [id number] 01:26:09* Test Item Value Reference Range Interpretation Comme nts TROPONIN I (test code = 2506991319) 0.071 ng/mL <=0.034 H ANDREW (test code = ANDREW) Reference (Normal) Range (defined by the 99th percentile reference limit): <= 0.034 ng/mL Note: Cardiac troponin begins to rise 3-4 hours after the onset of ischemia. Repeat in 4-6 hours if the sample was drawn within 3-4 hours of the onset of the symptom and found normal. Diagnosis of myocardial injury is made with acute changes in cTn concentrations with at least one serial sample above the 99th percentile upper reference limit (URL), taken together with the patient's clinical presentation. Biotin has been reported to cause a negative bias, interpret results relative to patient's use of biotin. Lab Interpretation (test code = 28703-2) Abnormal [facility] HospitalN-TERMINAL [id number] 01:19:00* Test Item Value Reference Range Interpretation Comme nts NT-proBNP (test code = 08147-6) 2180 pg/mL <=125 H ANDREW (test code = ANDREW) Positive: Heart Failure Likely Lab Interpretation (test code = 31682-7) Abnormal [facility] HospitalCOMP. METABOLIC PANEL (53173)2024-07-24 01:09:58* Test Item Value Reference Range Interpretation Comme nts NA (test code = 8622057773) 142 mmol/L 135-145 K (test code = 3348363909) 4.6 mmol/L 3.5-5.0 CL (test code = 7255296965) 104 mmol/L 98-108 CO2 TOTAL (test code = 1096178923) 35 mmol/L 23-31 H AGAP (test code = 0981545080) 3 2-16 BUN (test code = 2766576137) 47 mg/dL 7-23 H GLUCOSE (test code = 8360548764) 209 mg/dL 70-110 H CREATININE (test code = 2160-0) 1.71 mg/dL 0.60-1.25 H TOTAL BILI (test code = 9784062058) 0.7 mg/dL 0.1-1.1 CALCIUM (test code = 0540622640) 11.3 mg/dL 8.6-10.6 H T PROTEIN (test code = 6855957570) 6.5 g/dL 6.3-8.2 ALBUMIN (test code = 9179200886) 3.6 g/dL 3.5-5.0 ALK PHOS (test code = 5851592963) 109 U/L 34-122 ALTv (test code = 1742-6) 28 U/L 5-50 AST(SGOT) (test code = 8197244212) 22 U/L 13-40 eGFR (test code = 89080-5) 39.5 mL/min/1.73m2 CKD-EPI eGFR (2020). Assuming creatinine has been stable day-to-day for at least three months, the eGFR indicates Category G3b (30 - 44 mL/min/1.73 m2) Lab Interpretation (test code = 30917-5) [facility]normal [facility] WITH [id number] 00:57:59* Test Item Value Reference Range Interpretation Comme nts WBC (test code = 6690-2) 8.99 4.20-10.70 RBC (test code = 789-8) 2.69 4.26-5.52 L HGB (test code = 718-7) 7.7 g/dL 12.2-16.4 L HCT (test code = 4544-3) 26.1 % 38.4-49.3 L MCV (test code = 787-2) 97 fL 81.7-95.6 H MCH (test code = 785-6) 28.6 pg 26.1-32.7 MCHC (test code = 786-4) 29.5 g/dL 31.2-35.0 L RDW-SD (test code = 45545-2) 55.4 fL 38.5-51.6 H RDW-CV (test code = 788-0) 15.8 % 12.1-15.4 H PLT (test code = 777-3) 258 150-328 MPV (test code = 94649-9) 10.2 fL 9.8-13.0 NRBC/100 WBC (test code = 2541103222) 0 0.0-10.0 NRBC x10^3 (test code = 6267121038) See_Comment [Automated messa ge] The system which generated this result transmitted reference range: 10*3/?L. The reference range was not used to interpret this result as normal/abnormal. GRAN MAT (NEUT) % (test code = 770-8) 83.8 % IMM GRAN % (test code = 2348343181) 0.4 % LYMPH % (test code = 736-9) 6.5 % MONO % (test code = 5905-5) 7.9 % EOS % (test code = 713-8) 1.1 % BASO % (test code = 706-2) 0.3 % GRAN MAT x10^3(ANC) (test code = 2001102398) 7.53 10*3/uL 1.99-6.95 H IMM GRAN x10^3 (test code = 1250299397) 0.04 10*3/uL 0.00-0.06 LYMPH x10^3 (test code = 731-0) 0.58 10*3/uL 1.09-3.23 L MONO x10^3 (test code = 742-7) 0.71 10*3/uL 0.36-1.02 EOS x10^3 (test code = 711-2) 0.1 10*3/uL 0.06-0.53 BASO x10^3 (test code = 704-7) 0.03 10*3/uL 0.01-0.09 Lab Interpretation (test code = 14048-7) Abnormal [facility] [id number] 00:20:00Ford Daniels DO ? ? 07/25/2024 ?3:24 AMCritical Care Performed by: Ford Daniels DOAuthorized by: Ford Daniels DO ?Critical care provider statement: ?Critical care time (minutes): ?36 ?Critical care time was exclusive of: ?Separately billable procedures and treating other patients and teaching time ?Critical care was necessary to treat or prevent imminent or life-threatening deterioration of the following conditions: ?Cardiac failure and respiratory failure ?Critical care was time spent personally by me on the following activities: ?Pulse oximetry, ordering and review of radiographic studies and examination of [facility] [id number] 00:00:00* Test Item Value Reference Range Interpretation Comme nts HEMATOCRIT (test code = 81234-7) 37.4 % See_Comment L [Automated messa ge] The system which generated this result transmitted reference range: 40.0-51.0 %. The reference range was not used to interpret this result as normal/abnormal. HEMOGLOBIN (test code = 718-7) 11.9 G/DL See_Comment L [Automated messa ge] The system which generated this result transmitted reference range: 13.5-17.0 G/DL. The reference range was not used to interpret this result as normal/abnormal. MCH (test code = 02051-3) 30.7 PG See_Comment [Automated messa ge] The system which generated this result transmitted reference range: 25.0-33.0 PG. The reference range was not used to interpret this result as normal/abnormal. MCHC (test code = 33782-8) 31.8 G/DL See_Comment [Automated messa ge] The system which generated this result transmitted reference range: 31.0-36.0 G/DL. The reference range was not used to interpret this result as normal/abnormal. MCV (test code = 99552-3) 96.4 fL See_Comment [Automated messa ge] The system which generated this result transmitted reference range: 80.0-99.0 fL. The reference range was not used to interpret this result as normal/abnormal. PLATELET COUNT (test code = 91783-1) 186 K/UL See_Comment [Automated messa ge] The system which generated this result transmitted reference range: 130-400 K/UL. The reference range was not used to interpret this result as normal/abnormal. RBC (test code = 74199-3) 3.88 M/UL See_Comment L [Automated messa ge] The system which generated this result transmitted reference range: 4.50-6.10 M/UL. The reference range was not used to interpret this result as normal/abnormal. WBC (test code = 55922-9) 5.7 K/UL See_Comment [Automated messa ge] The system which generated this result transmitted reference range: 3.5-11.0 K/UL. The reference range was not used to interpret this result as normal/abnormal. MAGNESIUM (test code = 57694-2) 2.5 MG/DL See_Comment [Automated messa ge] The system which generated this result transmitted reference range: 1.6-2.6 MG/DL. The reference range was not used to interpret this result as normal/abnormal. HEMOGLOBIN A1c (test code = 4548-4) 6.1 % See_Comment H [Automated messa ge] The system which generated this result transmitted reference range: 4.2-5.6 %. The reference range was not used to interpret this result as normal/abnormal. FREE T4 (THYROXINE) (test code = 3024-7) 1.40 NG/DL See_Comment [Automated message] The system which generated this result transmitted reference range: 0.80-1.90 NG/DL. The reference range was not used to interpret this result as normal/abnormal. TSH REFLEX TO FREE T4 (test code = 23913-6) 6.330 UIU/ML See_Comment H [Automated message] The system which generated this result transmitted reference range: 0.400-4.100 UIU/ML. The reference range was not used to interpret this result as normal/abnormal. CALC LDL CHOL (test code = 64269-1) 69 MG/DL See_Comment [Automated messa ge] The system which generated this result transmitted reference range: <100 MG/DL. The reference range was not used to interpret this result as normal/abnormal. CHOLESTEROL (test code = 2093-3) 145 MG/DL See_Comment [Automated messa ge] The system which generated this result transmitted reference range: <200 MG/DL. The reference range was not used to interpret this result as normal/abnormal. HDL CHOLESTEROL (test code = 2085-9) 63 MG/DL See_Comment [Automated messa ge] The system which generated this result transmitted reference range: >39 MG/DL. The reference range was not used to interpret this result as normal/abnormal. RISK RATIO LDL/HDL (test code = 74635-7) 1.10 RATIO See_Comment [Automated message] The system which generated this result transmitted reference range: <3.55 RATIO. The reference range was not used to interpret this result as normal/abnormal. TRIGLYCERIDES (test code = 2571-8) 53 MG/DL See_Comment [Automated messa ge] The system which generated this result transmitted reference range: <150 MG/DL. The reference range was not used to interpret this result as normal/abnormal. ALBUMIN, URINE, RANDOM (test code = 79891-8) 0.8 MG/DL NOT ESTAB MG/DL CALC ALBUMIN/CREAT, RND (test code = 39382-4) 22 MG/G See_Comment [Automated messa ge] The system which generated this result transmitted reference range: <30 MG/G. The reference range was not used to interpret this result as normal/abnormal. CREATININE, URINE, CONC. (test code = 2161-8) 35.9 MG/DL NOT ESTAB MG/DL ALBUMIN (test code = 1751-7) 3.6 G/DL See_Comment [Automated messa ge] The system which generated this result transmitted reference range: 3.5-5.2 G/DL. The reference range was not used to interpret this result as normal/abnormal. ALKALINE PHOSPHATASE (test code = 6768-6) 116 U/L See_Comment [Automated message] The system which generated this result transmitted reference range: 40-125 U/L. The reference range was not used to interpret this result as normal/abnormal. BILIRUBIN, TOTAL (test code = 1975-2) 0.9 MG/DL See_Comment [Automated messa ge] The system which generated this result transmitted reference range: <=1.2 MG/DL. The reference range was not used to interpret this result as normal/abnormal. BUN (test code = 3094-0) 22 MG/DL See_Comment [Automated messa ge] The system which generated this result transmitted reference range: 8-23 MG/DL. The reference range was not used to interpret this result as normal/abnormal. CALCIUM (test code = 02457-0) 8.9 MG/DL See_Comment [Automated messa ge] The system which generated this result transmitted reference range: 8.5-10.5 MG/DL. The reference range was not used to interpret this result as normal/abnormal. CALC A/G RATIO (test code = 1759-0) 1.9 RATIO See_Comment [Automated messa ge] The system which generated this result transmitted reference range: 1.0-2.6 RATIO. The reference range was not used to interpret this result as normal/abnormal. CALC BUN/CREAT (test code = 3097-3) 13 RATIO See_Comment [Automated messa ge] The system which generated this result transmitted reference range: 6-28 RATIO. The reference range was not used to interpret this result as normal/abnormal. CALC GLOBULIN (test code = 81244-7) 1.9 G/DL See_Comment [Automated messa ge] The system which generated this result transmitted reference range: 1.9-3.7 G/DL. The reference range was not used to interpret this result as normal/abnormal. CARBON DIOXIDE (test code = 1963-8) 29 MEQ/L See_Comment [Automated messa ge] The system which generated this result transmitted reference range: 19-31 MEQ/L. The reference range was not used to interpret this result as normal/abnormal. CHLORIDE (test code = 2075-0) 107 MEQ/L See_Comment [Automated messa ge] The system which generated this result transmitted reference range: 95-107 MEQ/L. The reference range was not used to interpret this result as normal/abnormal. CREATININE (test code = 2160-0) 1.64 MG/DL See_Comment H [Automated messa ge] The system which generated this result transmitted reference range: 0.80-1.40 MG/DL. The reference range was not used to interpret this result as normal/abnormal. eGFR (2020 CKD-EPI) (test code = 48947-5) 42 ML/MIN/1.73 See_Comment L [Automated message] The system which generated this result transmitted reference range: >60 ML/MIN/1.73. The reference range was not used to interpret this result as normal/abnormal. GLUCOSE (test code = 1558-6) 81 MG/DL See_Comment [Automated messa ge] The system which generated this result transmitted reference range: 70-99 MG/DL. The reference range was not used to interpret this result as normal/abnormal. POTASSIUM (test code = 2823-3) 4.7 MEQ/L See_Comment [Automated messa ge] The system which generated this result transmitted reference range: 3.5-5.4 MEQ/L. The reference range was not used to interpret this result as normal/abnormal. PROTEIN, TOTAL (test code = 2885-2) 5.5 G/DL See_Comment L [Automated messa ge] The system which generated this result transmitted reference range: 6.1-8.3 G/DL. The reference range was not used to interpret this result as normal/abnormal. AST (test code = 1920-8) 27 U/L See_Comment [Automated messa ge] The system which generated this result transmitted reference range: 9-50 U/L. The reference range was not used to interpret this result as normal/abnormal. ALT (test code = 1742-6) 35 U/L See_Comment [Automated messa ge] The system which generated this result transmitted reference range: 5-50 U/L. The reference range was not used to interpret this result as normal/abnormal. SODIUM (test code = 2951-2) 145 MEQ/L See_Comment [Automated messa ge] The system which generated this result transmitted reference range: 133-146 MEQ/L. The reference range was not used to interpret this result as normal/abnormal. Consult Notes Date/Time Note Provider Source 2024-07-31 11:54:18 Associated Order(s): CONSULT QUALITY OFFICER-ADULT [facility] [place] rehab will equip the patient with any DME needs before discharge. Jose Wesley RN, BSN [facility] [employer] Manager [phone] [facility] - Health 2024-07-25 16:48:01 Associated Order(s): CONSULT PULMONARY MEDICINE [facility] Pulmonary/Critical Care Medicine Interventional Pulmonology Chief Complaint: Shallow breathing Subjective: Vivek Vallejo is a 84 year old male whose family brought him in because he was more lethargic, taking more shallow breaths, and getting more swollen. He denied any trouble breathing however. Past Histories: I have reviewed and updated the following as appropriate: past medical history, past surgical history, family history, social history. Objective: BP 120/42 | Pulse 54 | Temp 37 ?C (98.6 ?F) (Bladder) | Resp 12 | Ht 5' 6" (1.676 m) | Wt 187 lb 4.8 oz (85 kg) | SpO2 99% | BMI 30.23 kg/m? Physical Exam Constitutional: Appearance: Normal appearance. Cardiovascular: Rate and Rhythm: Normal rate and regular rhythm. Pulmonary: Effort: Pulmonary effort is normal. No respiratory distress. Musculoskeletal: Right lower leg: Edema present. Left lower leg: Edema present. Neurological: General: No focal deficit present. Mental Status: He is alert and oriented to person, place, and time. Labs/Studies: WBC 9.71 Hgb 7.2 Plts 226 Blood gas 7.31|59|40|29 Na 140 K 4.2 Cl 100 CO2 38 [address] chest no PE, 6 mm tracheal polyp, elevated diaphragm bilaterally with bilateral atelectasis EF 40% with pseuodonormal diastolic function Assessment: Vivek Vallejo is a 84 year old male with altered mental status, shallow breathing and acute/chronic systolic heart failure. Plan: Would recommend avoiding medications that can sedate him Mgmt of heart failure as per primary team and cardiology Wean oxygen as tolerated As patient gets more awake would consider physical therapy Likely will need outpatient sleep study to rule out obstructive/central sleep apnea IM-PULMONARY DISEASE STAFF [facility] 2024-07-25 10:35:00 Associated Order(s): CONSULT ADULT PHYSICAL THERAPY Images from the original note were not included. Patient agreeable to working with physical therapy. Patient semireclining in bed and Heels offloaded? Yes Using heel lift boots, Daughter present. Recommend nursing staff utilize RW, AFO, gait belt to safely assist patient with mobility out of the bed or chair. PHYSICAL THERAPY EVALUATION Consult received, chart reviewed and evaluation complete this date. Patient is referred to PT for evaluation and treatment. Patient is a 84 year old male who presents to hospital for Acute respiratory failure with hypoxemia [J96.01] . Discharge Recommendations: Therapy Needs and Potential: Patient would benefit from continued physical therapy services to address: decline in bed mobility decline in transfers decline in gait and/or balance decline in stair/step negotiation decline w/c mobility decreased strength decreased range of motion decreased endurance decreased coordination decreased motor planning Patient demonstrates good potential to improve and meet therapy goals with further physical therapy services. Patient appears motivated to improve their functional mobility and return to their previous level of function. Patient exhibits limited activity tolerance. Challenges to Home Transition: increased risk of falls decreased caregiver availability decreased safety awareness environmental barriers Equipment recommendations: Patient has or access to necessary equipment and rolling walker Current Functional Status and/or Treatment: AM-PAC 6 Clicks (Raw Score 0=Dependent, 24=Independent; Low function Raw Score 0= Dependent, 32=Independent): Raw Score - Basic Mobility : 7 T-Scale Score - Basic Mobility : 19.39 Bed Mobility: Rolling: Total Assistance Supine-sit: Total Assistance Sitting balance Fair Scooting to edge of bed: Maximum Assistance Repositioned patient to head of bed: Total Assistance Cued pt on proper sequencing and hand placement Dizziness No Transfers: sit-stand: Moderate Assistance Static/dynamic standing balance: Fair Verbal cueing provided for correct hand placement and correct use of AD Dizziness No Ambulation: pre gait patient unable to tolerate due to increased generalized weakness, Desmond LE weakness and desmond footdrop despite applying dorsiflexion assist wrap pt performed marches in standing with increased difficulty with hip/knee flexion and bear/shift weight on right side. Pt instructed to side step to get to HOB using RW, pt dragged left foot, pt sat down at EOB and required Max to scoot to middle part of bed. Dizziness No Therapeutic exercise: patient educated in Deep breathing, Energy conservation, Fall prevention, General strengthening, Positioning, Relaxation/breathing techniques, and Safety awareness., instructed patient in the following: ankle pumps, quad sets, glut sets, heel slides, straight leg raises, short arc quads, patient/caregiver instructed to perform HEP 2 times per day, 10 repetitions., and patient/caregiver demonstrates understanding of instructions. After session, patient semireclining in bed and Heels offloaded? Yes Using heel lift boots, Daughter present. Call button provided. Pt left on ride sidelying with wedges on his left side. Pt's daughter still at bedside. PLAN OF CARE: While in the hospital, PT will follow patient at least 3 times per week,once or twice a day, per patient's tolerance and needs. See below for complete details. Admit Date: 07/23/2024 Hospital Diagnosis:Acute respiratory failure with hypoxemia [J96.01] PT Diagnosis: Difficulty walking, Weakness, Malaise/fatigue, Dyspnea, Abnormality of gait and balance, Integument compromise, and Joint stiffness Weight Bearing Precaution: NA General Precautions: General, Fall, Lines/Tubes,Garza catheter, IV , oxygen: Nasal canula Bracing/Cast present or required:N/A PMH: History reviewed. No pertinent past medical history. PSH: History reviewed. No pertinent surgical history. PRIOR LIVING SITUATION: in a house and with their daughter, Ramp access DME: Rolling Walker, Wheel Chair , AFO Prior level of Mobility: ambulates with physical assistance - pt's daughter reports that pt tends to lean back d/t to footdrop, daughter always stands behind pt to prevent from falling Suspected ischemic or hemorraghic stroke:No Subjective: Pt was asleep upon therapist's arrival, information and pt's hx obtained from pt's daughter, pt then was more awake and agreed to participate with evaluation. Patient/Family Goals: "to be able to walk better and be safe." Per daughter Patient/Family verbalizes understanding of condition: Yes PAIN: denies pain before and after session COMMUNICATION Primary Language: Bulgarian Able to Verbalize needs: Yes Vision:glasses Hearing:good; no issues reported ORIENTATION/COGNITION: Oriented to: person, place, date/time, and situation Awake: Yes Alert: Yes Dizzy: No Follows Commands: Yes 1-Step Yes Multi-Step Yes Inconsistent: No NEUROLOGICAL Light Touch: within functional limits bilateral LE, BALANCE: Sitting: Static: Good Dynamic: Fair+ Standing: Static: Fair Dynamic: Poor+ RANGE OF MOTION: deficit: LOM bilateral LE, STRENGTH: 4-/5 (G-), bilateral LE (+) bilateral footdrop ENDURANCE: Fair, Nasal canula at 5L SKIN INTEGRITY: not intact, PROBLEM LIST: Decline in bed mobility, Decline in gait, Decline in transfers, Difficulty with stairs, Decreased strength, Decreased endurance, Decreased balance, ROM deficits, Safety awareness deficits, Decreased Coordination, Decreased Motor Planning, and Integument compromise ASSESSMENT: Patient is a 84 year old male seen secondary to the above listed diagnosis. Patient would benefit from continued PT to address the above listed deficits to maximize independence and safety with functional mobility. Rehabilitation Potential: guarded Goals: The following goals are to maximize independence and safety with functional mobility to eventually return to prior living situation and prior functional status. 1. Supine-sit: Minimal Assistance Scooting to edge of bed: Minimal Assistance 2. Sit to stand: Supervision using RW 3. Minimal Assistance with ambulation, Feet: 10 using least assistive device. Treatment Plan: Gait training, Therapeutic exercise, Transfer training, Balance training, Bed mobility training, Safety education, patient/caregiver education, Wheelchair mobility training, and Neuromuscular Re-Education PATIENT EDUCATION: Patient and Family member provided with preferred teaching of verbal information and demonstration on role of PT, plan of care, . Shows readiness to learn. Verbal instruction and Demonstration teaching provided. Individual is able to read and verbalizes understanding of teaching provided and needs reinforcement of teaching. Total Time Tx Codes in Minutes: 38 min Total Treatment Time in Minutes: 45 min Maggie Rdz PT Licensed Physical Therapist License #[id number] A physical therapy evaluation of moderate complexity was completed based on meeting the criteria below: A history of present problem with at least 1-2 personal factors (includes environmental factors) and/or comorbidities that impact the plan of care An examination of body systems using standardized tests and measures in addressing at least 3 or more elements from any of the following: body structures and functions, activity limitations and/or participation restrictions An evolving clinical presentation with changing characteristics Maggie Rdz PT [facility] [employer] 2024-07-24 08:08:00 Associated Order(s): CONSULT CARDIOLOGY [facility] Cardiology Consult Note Patient: Vivek Vallejo Date of : 1940 Date of service: 07/24/2024 Primary Care Physician: Aydee Larsen CHIEF COMPLAINT: Chief Complaint Patient presents with Other hypoxia Chest Pain HISTORY OF PRESENT ILLNESS: Vivek Vallejo is a 84 year old male presented to the ER for evaluation for somnolence/hypoxia. History from patient/daughter at bedside. Pertinent cardiac related history reviewed from chart Presents to the ED secondary to shortness of breath that started hours prior to arrival. Granddaughter came over and noticed that patient was somnolent while patient stated that he was fine.Granddaughter noted oxygen saturation was 81-82%. Cardiology consulted to mild elevated troponin and prior history of CAD status post stenting in the setting of anemia. Patient reports patient had a history of coronary artery sties procedure done in the Apr 2024 with the details are not known being awaited. ADAMSON NYHA class II-III noted. No chest pain at rest. No PND or orthopnea. No pedal edema. No exertional palpitations or palpitations at rest. No syncopal attacks. After he had Apr 2024, patient was in rehab for few weeks. He was discharged on Plavix from the hospital. When he was discharged from rehab, he was DC on Eliquis due to driving from [place] to [place] as "precaution" likely to prevent DVT. Patient has been on Eliquis since then along with Plavix. PMH of HTN, ?? atrial fibrillation, BPH, hypothyroidism, HLD, CAD CAD s/p stent (April 2024, [place]) Chronic anemia SOCIAL HISTORY Social History Socioeconomic History Marital status: ALLERGIES Allergies Allergen Reactions Versed [Midazolam] Other - See comments Hyper and hypotension, irregular breathing MEDICATIONS Current Discharge Medication List STOP taking these medications amLODIPine 5 mg tablet Comments: Reason for Stopping: apixaban (ELIQUIS) 5 mg tablet Comments: Reason for Stopping: atorvastatin 40 mg tablet Comments: Reason for Stopping: cetirizine (ZYRTEC) 10 mg tablet Comments: Reason for Stopping: clopidogreL 75 mg tablet Comments: Reason for Stopping: diphenhydrAMINE (BENADRYL ALLERGY) 50 mg tablet Comments: Reason for Stopping: doxazosin 2 mg tablet Comments: Reason for Stopping: fluticasone 27.5 mcg/actuation nasal spray Comments: Reason for Stopping: furosemide 20 mg tablet Comments: Reason for Stopping: isosorbide dinitrate 30 mg tablet Comments: Reason for Stopping: levothyroxine 25 mcg tablet Comments: Reason for Stopping: meclizine 25 mg tablet Comments: Reason for Stopping: metoprolol tartrate 25 mg tablet Comments: Reason for Stopping: ondansetron 4 mg tablet Comments: Reason for Stopping: polyethylene glycol 3350 (MIRALAX) 17 gram powder Comments: Reason for Stopping: triamcinolone 0.5 % cream Comments: Reason for Stopping: Current Facility-Administered Medications: alum-mag hydroxide-simeth (MAG-AL PLUS) 200-200-20 mg/5 mL suspension 30 mL, 30 mL, Oral, Q4HPRN, Hyacinth Tsang MD, 30 mL at 07/24/24 0123 amLODIPine (NORVASC) tablet 5 mg, 5 mg, Oral, BID, Hyacinth Tsang MD atorvastatin (LIPITOR) tablet 40 mg, 40 mg, Oral, QHS, Hyacinth Tsang MD cetirizine (ZYRTEC) tablet 10 mg, 10 mg, Oral, DAILY, Hyacinth Tsang MD clopidogreL (PLAVIX) 75 mg tablet 75 mg, 75 mg, Oral, DAILY, Hyacinth Tsang MD diphenhydrAMINE (BENADRYL) tablet 50 mg, 50 mg, Oral, QHSPRN, Hyacinth Tsang MD doxazosin (CARDURA) tablet 2 mg, 2 mg, Oral, QHS, Hyacinth Tsang MD furosemide (LASIX) injection 40 mg, 40 mg, Slow IV Push, DAILY, Hyacinth Tsang MD, 40 mg at 07/24/24 0804 isosorbide dinitrate (ISORDIL) tablet 60 mg, 60 mg, Oral, DAILY, Hyacinth Tsang MD levothyroxine (SYNTHROID) tablet 25 mcg, 25 mcg, Oral, QAM-0600, Hyacinth Tsang MD meclizine (ANTIVERT) tablet 25 mg, 25 mg, Oral, BIDPRN, Hyacinth Tsang MD metoprolol tartrate (LOPRESSOR) tablet 25 mg, 25 mg, Oral, BID, Hyacinth Tsang MD ondansetron (ZOFRAN) tablet 4 mg, 4 mg, Oral, Q8H, Hyacinth Tsang MD aspirin chewable tablet 81 mg, 81 mg, Oral, DAILY, Hyacinth Tsang MD heparin (1,000 unit/mL, 10 mL vial) for Rebolusing, 3,000 Units, Slow IV Push, FOR REBOLUSING, Hyacinth Tsang MD heparin 25,000 Units/250 mL (Premixed Bag) in 0.45 % NS, 0-1,600 Units/hr, IV Infusion, CONTINUOUS, Hyacinth Tsang MD, Last Rate: 9.5 mL/hr at 07/24/24 0043, 950 Units/hr at 07/24/24 0043 REVIEW OF SYSTEMS: Comprehensive 10-system review was conducted and were negative except for what's noted in the HPI. The following systems were reviewed: Constitutional, cardiovascular, respiratory, gastrointestinal, genitourinary, musculoskeletal, neurologic, psychiatric, endocrinological, and hematological. PHYSICAL EXAMINATION: Vitals: 07/24/24 0554 07/24/24 0600 07/24/24 0700 07/24/24 0720 BP: 122/46 134/44 Pulse: 50 52 (!) 48 (!) 48 Resp: 15 13 12 Temp: 36.2 ?C (97.2 ?F) TempSrc: SpO2: 95% 100% 100% 100% Weight: Height: General: no apparent distress HEENT: normocephalic atraumatic Neck: supple, no lymphadenopathy, no bruits, no JVD Lungs: clear to auscultation bilaterally. No wheezes or rhonchi. No increased work of breathing. Cardio: Regular rate and rhythm, S1&S2 normal, no murmurs, rubs or gallops Abdomen: soft; non-tender; non-distended; normoactive bowel sounds. : not examined Rectal: not examined Extremities: no clubbing, cyanosis, or edema. Skin: no rashes, no visible lesions. Neuro: no gross focal deficits LABS - Reviewed pertinent labs as below: CBC BMP PT/INR WBC (10*3/?L) Date Value 07/24/2024 8.67 NA (mmol/L) Date Value 07/24/2024 142 No results found for: "PT" PLT (10*3/?L) Date Value 07/24/2024 248 K (mmol/L) Date Value 07/24/2024 4.2 INR (no units) Date Value 07/24/2024 1.5 HGB (g/dL) Date Value 07/24/2024 7.2 (L) BUN (mg/dL) Date Value 07/24/2024 47 (H) HCT (%) Date Value 07/24/2024 24.4 (L) CREATININE (mg/dL) Date Value 07/24/2024 1.72 (H) LIPID PROFILE GLUCOSE (mg/dL) Date Value 07/24/2024 113 (H) No results found for: "CHOL" TSH No results found for: "LDL" No results found for: "TSH" CARDIAC ENZYMES No results found for: "HDL" No results found for: "CK" No results found for: "TRIG" LFTs No results found for: "CKMB" AST(SGOT) (U/L) Date Value 07/23/2024 22 TROPONIN I (ng/mL) Date Value 07/24/2024 0.085 (H) ALTv (U/L) Date Value 07/23/2024 28 No results found for: "BNP" No results found for: "LDL" Recent Labs 07/24/24 0414 TROPNI 0.085* There are no current results on file for these tests and/or test for 1 year. No results found for: "LDL" NT-proBNP (pg/mL) Date Value 07/23/2024 2,180 (H) ASSESSMENT/PLAN Principal Problem: Acute respiratory failure with hypoxemia Active Problems: Coronary artery disease involving [place] coronary artery of [place] heart with angina pectoris Elevated troponin I level Elevated brain natriuretic peptide (BNP) level Essential hypertension Dyslipidemia Anemia associated with nutritional deficiency Relevant cardiac labs reviewed elevated NT proBNP noted to 2000 80 and troponins mildly elevated indeterminate range, creatinine mildly elevated 1.7 but stable, hemoglobin noted to be 7.7 stable. Platelet count stable at 248. Chest x-ray shows no significant evidence of underlying heart failure pattern. PE protocol CT date shows no evidence of any PE no evidence of any heart failure or pleural effusion noted. EKG dated 07/23/2024 strips reviewed shows sinus rhythm, narrow QRS complex, nonspecific ST-T changes noted. Elevated troponins: Indeterminate range: No dynamic ST-T changes noted recommend serial troponins x 2, recommended echocardiogram and continue telemetry monitoring. Currently on IV heparin drip. Recent Labs 07/24/24 0414 07/24/24 1027 TROPNI 0.085* 0.073* Elevated NT proBNP: Clinically does not appear to be volume overload no evidence of heart failure noted by chest x-ray or CT recommended echocardiogram, Will avoid IV diuretics for now may consider starting home dose of diuretics. Repeat NT proBNP in AM. Home dose of Lasix 20 M, W, F. NT-proBNP (pg/mL) Date Value 07/23/2024 2,180 (H) CAD status post PCI April 2024: Requested outside records regarding the details of the coronary angiogram and the discharge summary Currently on Plavix 75 mg daily along with Toprol-XL 25 mg twice daily along with Lipitor 40 mg daily. Along with isosorbide 60 mg daily with amlodipine 5 mg twice daily. ?? Paroxysmal atrial fibrillation: No Clear cut history elicited. After he had Apr 2024, patient was in rehab for few weeks. He was discharged on Plavix from the hospital. When he was discharged from rehab, he was DC on Eliquis due to driving from [place] to [place] as "precaution" likely to prevent DVT. Patient has been on Eliquis since then along with Plavix. Will hold off for now Eliquis. Will plan for outpatient event monitor. Currently maintaining sinus rhythm continue telemetry monitoring currently on Toprol XL 25 mg twice daily. Noted to be amiodarone also 200 daily. Hypertension: Stable currently on amlodipine 5 mg twice daily with metoprolol 25 mg twice daily, isosorbide 60 mg daily. Likely being used Imdur and amlodipine as antianginal medications if need arises we can cut down the dose of these medications. Recommend goal BP < 140/90. Dyslipidemia currently on Lipitor 40 mg daily. Goal LDL needs to be less than 70. No results found for: "LDL" Somnolence/altered mental status: Rx/workup as per primary team. Anemia: Recent PCI noted in April 2024 need to continue Plavix 75 mg daily for now. Recommended iron panel recommend to keep the goal hemoglobin more than 8 from the cardiac standpoint due to history of recent CAD/age/history of heart failure. Total Visit Time: 60 mins The total Visit time for today's visit with Vivek Vallejo encompassed 60 minutes. Time was spent reviewing the chart before, during and after the visit, reviewing laboratory results, taking interval history, performing the documented physical examination, completing and "cleaning up" the electronic medical record as well as addressing any questions and concerns. The time spent for patient care includes: PreCharting (eg, review of tests, notes, etc.), Obtaining and/or reviewing separately obtained history (Care Everywhere or paper records), Counseling and educating the patient/family/caregiver, Ordering medications, tests, or procedures, Ordering referrals and/or communicating with other health direct care professional (when not separately reported), Documenting clinical information in the electronic or other health record, and Independently interpreting results (not separately reported) and/or communicating results to the patient/family/caregiver. This report was dictated using [employer] and is subject to voice recognition errors. Please excuse any unusual inaccuracies. My diagnostic impression and treatment plans were discussed at length with the patient and family member present. All side effects as well as drug-drug interactions and risks discussed at length. Ample opportunity was offered and encouraged to ask questions during this visit and patient appreciated the answers given by me and verbzalised statisfcation in the answers given. Thank you for allowing us to participate in the care of Vivek Vallejo. If you have any questions or concerns please feel free to call our office at [phone]. I would be happy to be of further assistance for Vivek Vallejo wellbeing. Voice recognition software has been used to create portions of this document. An attempt to proofread has been made to minimize errors. Please do not hesitate to call with any questions. Marshal Friedman MD 07/24/2024 8:08 AM Vascular Surgeon, Division of Cardiology [facility] T [facility] - Health History and Physical Notes Date/Time Note Provider Source 2024-07-23 22:59:40 MEDICINE [facility] ADMIT H&P Date of Service: 07/23/2024 CHIEF COMPLAINT: shortness of breath Subjective History of Present Illness 84 yo male with pmh of HTN, atrial fibrillation, BPH, hypothyroidism, HLD who presents to the ED secondary to shortness of breath that started hours prior to arrival. Granddaughter came over and noticed that patient was somnolent while patient stated that he was fine.Granddaughter noted oxygen saturation was 81-82%. CAD s/p stent (April 2024, [place]) Chronic anemia - don't know if he had colonoscopy +murmur PAST MEDICAL HISTORY HTN Atrial fibrillation BPH Hypothyroidism HLD Past Surgical History None reported Past Family History Noncontributory ALLERGIES Allergies Allergen Reactions Versed [Midazolam] Other - See comments Hyper and hypotension, irregular breathing MEDICATIONS No current facility-administered medications on file prior to encounter. Current Outpatient Medications on File Prior to Encounter Medication Sig Dispense Refill amLODIPine 5 mg tablet Take 1 tablet by mouth in the morning and 1 tablet in the evening. apixaban (ELIQUIS) 5 mg tablet Take 1 tablet by mouth in the morning and 1 tablet in the evening. atorvastatin 40 mg tablet Take 1 tablet by mouth at bedtime. cetirizine (ZYRTEC) 10 mg tablet Take 1 tablet by mouth in the morning. clopidogreL 75 mg tablet Take 1 tablet by mouth in the morning. diphenhydrAMINE (BENADRYL ALLERGY) 50 mg tablet Take 1 tablet by mouth at bedtime as needed for Sleep. doxazosin 2 mg tablet Take 1 tablet by mouth at bedtime. fluticasone 27.5 mcg/actuation nasal spray Use 1 [place] in each nostril in the morning and 1 [place] in the evening. furosemide 20 mg tablet Take 1 tablet by mouth every Wednesday, Wednesday and Wednesday. isosorbide dinitrate 30 mg tablet Take 2 tablets by mouth in the morning. levothyroxine 25 mcg tablet Take 1 tablet by mouth every morning. meclizine 25 mg tablet Take 1 tablet by mouth 2 (two) times daily as needed for Dizziness. metoprolol tartrate 25 mg tablet Take 1 tablet by mouth in the morning and 1 tablet in the evening. ondansetron 4 mg tablet Take 1 tablet by mouth every 8 (eight) hours. polyethylene glycol 3350 (MIRALAX) 17 gram powder Take 1 Packet by mouth once daily as needed for Constipation. triamcinolone 0.5 % cream Apply 1 Squirt to area(s) 3 (three) times daily as needed for Rash or Itching (Apply to scrotal area.). SOCIAL HISTORY Social History Socioeconomic History Marital status: REVIEW OF SYSTEMS Review of Systems Unable to perform ROS: Other Respiratory: Positive for shortness of breath. Psychiatric/Behavioral: Positive for confusion. Objective PHYSICAL EXAMINATION Vitals: 07/23/24 2200 07/23/24 2300 07/23/24 2354 07/24/24 0031 BP: 126/52 132/54 Pulse: (!) 49 50 Resp: 17 16 Temp: 35.9 ?C (96.6 ?F) 36.3 ?C (97.3 ?F) TempSrc: Axillary Temporal Artery SpO2: 100% 94% Weight: 84 kg (185 lb 1.6 oz) Height: 1.676 m (5' 6") Physical Exam Vitals and nursing note reviewed. Constitutional: General: He is not in acute distress. Appearance: Normal appearance. He is not ill-appearing, toxic-appearing or diaphoretic. HENT: Head: Normocephalic and atraumatic. Right Ear: External ear normal. Left Ear: External ear normal. Nose: Nose normal. No congestion. Mouth/Throat: Mouth: Mucous membranes are moist. Pharynx: No oropharyngeal exudate or posterior oropharyngeal erythema. Eyes: General: No scleral icterus. Extraocular Movements: Extraocular movements intact. Conjunctiva/sclera: Conjunctivae normal. Pupils: Pupils are equal, round, and reactive to light. Cardiovascular: Rate and Rhythm: Normal rate and regular rhythm. Heart sounds: Murmur heard. No friction rub. No gallop. Pulmonary: Effort: Pulmonary effort is normal. No respiratory distress. Breath sounds: Normal breath sounds. No wheezing or rales. Chest: Chest wall: No tenderness. Abdominal: General: Abdomen is flat. Bowel sounds are normal. There is no distension. Palpations: Abdomen is soft. Tenderness: There is no abdominal tenderness. There is no guarding. Musculoskeletal: General: Normal range of motion. Cervical back: Normal range of motion and neck supple. Right lower leg: No edema. Left lower leg: No edema. Skin: General: Skin is warm and dry. Neurological: Mental Status: He is alert. LABS/IMAGING - reviewed EXAM: CT CHEST PULMONARY ANGIOGRAM CLINICAL INDICATION: 84 years old Male with Pulmonary embolism (PE) suspected, high prob Comparison: None TECHNIQUE: Volumetric helical CT angiogram was performed of the chest (lung apices to bases) with IV contrast. Images were reconstructed at 1.25 mm slice thickness. Axial MIPs, as well as coronal and sagittal MPRs were generated and reviewed. FINDINGS: Devices: None HEART AND GREAT VESSELS: The opacification of the pulmonary vasculature is appropriate. No filling defects are seen through the level of the segmental pulmonary arteries. The pulmonary trunk is normal in caliber. The thoracic aorta is normal in caliber with Mild atherosclerotic calcifications. There are severe calcifications of the coronary vessels. The heart is normal in size. No pericardial abnormalities are identified. The RV to LV is normal. MEDIASTINUM AND LOWER NECK: A 6 mm polypoid nodule is seen in the right lateral aspect of the distal trachea. The esophagus is within normal limits. The included thyroid gland appears normal. LYMPH NODES: Scattered small lymph nodes in both sides of the mediastinum and hilar regions, some of which are calcified. No evidence of intrathoracic lymphadenopathy. LUNGS AND PLEURA: Elevated bilateral diaphragm with underlying lung atelectasis, more on the left side. No suspicious nodules. Scattered bilateral pleural calcification are seen. VISUALIZED UPPER ABDOMEN: The included solid organs and hollow viscus appear within normal limits apart from small hepatic and splenic calcified granulomas. OSSEOUS STRUCTURES AND SOFT TISSUES: No focal osseous lesions are detected. Internal fixation of the left scapula. The soft tissues appear normal. IMPRESSION 1. No evidence of acute or chronic pulmonary embolism through the level of the subsegmental branches. AIDOC (computer aided detection software) confirms no filling defects in the pulmonary artery branches. 2. A 6 mm tracheal polyp. 3. Elevated diaphragm bilaterally with underlying lung atelectasis. EXAM: XR CHEST 1 VW COMPARISON: None HISTORY:84 years old, Male with hypoxia . IMPRESSION FINDINGS/IMPRESSION: Lordotic frontal view reveals obtained. Lungs/Pleura: Low lung volumes are noted. Left lower lobe opacity, may represent aspiration or atelectasis. Suspected small left-sided pleural effusion. No pneumothorax. Heart/Mediastinum: The cardiac silhouette is obscured by overlying opacities. EKG: sinus rhythm Assessment & Plan Vivek Vallejo is a 84 year old male with PMH as listed above, admitted to the hospital with: Acute congestive heart failure (unknown chronicity, ejection fraction)/respiratory failure/NSTEMI/hypercapnia Acute exacerbation of CHF (congestive heart failure): -- Continue active diuresis -- Daily weights, strict intake/output, free water restriction -- Check serial troponin levels -- Repeat blood gas Paroxysmal atrial fibrillation: rate controlled -- Will continue with metoprolol 3. Anemia: no evidence of active bleeding -- Order anemia work up (eg, iron, ferritin, transferrin, occult blood) 4. HTN: -- On metoprolol and heparin gtt 5. Hypothyroidism: -- On Synthroid 6. HLD: -- On Lipitor 7. BPH -- On doxazosin Prophylaxis: DVT- heparin Code Status: Full Code Advance Care Planning (Z71.89): Discussed at length with patient; full understanding confirmed. Surrogate decision maker identified: Yes, daughter present. Expected discharge: Home. Time spent: 18 minutes. Smoking Cessation (Z71.6): Tobacco use: No. Disposition: Home INPT: Anticipate greater than 2 midnight stays due to intensive nursing care, frequent monitoring, and ongoing/complex intervention due to the treatment of acute congestive heart failure exacerbation in the setting of NSTEMI [facility] [employer] Notes Date/Time Note Provider Source 2024-07-31 12:06:42 Problem: Falls, Risk of Goal: Absence of falls Outcome: Resolved Problem: Discharge Planning Goal: Adequate for discharge Outcome: Resolved Goal: Effective communication Outcome: Resolved Problem: Venous Thromboembolism, (actual or risk of) Goal: Absence of venous thromboembolism (Risk) Outcome: Resolved Problem: Pain Goal: Control of pain at or below patient's documented comfort goal Outcome: Resolved Goal: Reduction in pain sensation Outcome: Resolved Problem: Respiratory Function - Impaired Goal: Able to cough effectively Outcome: Resolved Goal: Adequate oxygenation Outcome: Resolved Goal: Adequate work of breathing Outcome: Resolved Goal: Patent airway Outcome: Resolved Problem: Cardiac Output - Decreased Goal: Cardiac output within specified parameters Outcome: Resolved Goal: Absence of signs and symptoms of decreased cardiac output Outcome: Resolved Problem: Skin integrity Impaired (Risk or Actual) Goal: Prevention of new skin breakdown Outcome: Resolved Chino Walker RN [facility] [employer] 2024-07-31 12:06:31 Problem: Falls, Risk of Goal: Absence of falls Outcome: Resolved Problem: Discharge Planning Goal: Adequate for discharge Outcome: Resolved Goal: Effective communication Outcome: Resolved Problem: Venous Thromboembolism, (actual or risk of) Goal: Absence of venous thromboembolism (Risk) Outcome: Resolved Problem: Pain Goal: Control of pain at or below patient's documented comfort goal Outcome: Resolved Goal: Reduction in pain sensation Outcome: Resolved Problem: Respiratory Function - Impaired Goal: Able to cough effectively Outcome: Resolved Goal: Adequate oxygenation Outcome: Resolved Goal: Adequate work of breathing Outcome: Resolved Goal: Patent airway Outcome: Resolved Problem: Cardiac Output - Decreased Goal: Cardiac output within specified parameters Outcome: Resolved Goal: Absence of signs and symptoms of decreased cardiac output Outcome: Resolved Problem: Skin integrity Impaired (Risk or Actual) Goal: Prevention of new skin breakdown Outcome: Resolved [facility] 2024-07-30 19:56:48 Problem: Falls, Risk of Goal: Absence of falls Outcome: Progressing as expected Problem: Discharge Planning Goal: Adequate for discharge Outcome: Progressing as expected Goal: Effective communication Outcome: Progressing as expected Problem: Venous Thromboembolism, (actual or risk of) Goal: Absence of venous thromboembolism (Risk) Outcome: Progressing as expected Problem: Pain Goal: Control of pain at or below patient's documented comfort goal Outcome: Progressing as expected Goal: Reduction in pain sensation Outcome: Progressing as expected Problem: Respiratory Function - Impaired Goal: Able to cough effectively Outcome: Progressing as expected Goal: Adequate oxygenation Outcome: Progressing as expected Goal: Adequate work of breathing Outcome: Progressing as expected Goal: Patent airway Outcome: Progressing as expected Problem: Cardiac Output - Decreased Goal: Cardiac output within specified parameters Outcome: Progressing as expected Goal: Absence of signs and symptoms of decreased cardiac output Outcome: Progressing as expected Problem: Skin integrity Impaired (Risk or Actual) Goal: Prevention of new skin breakdown Outcome: Progressing as expected THA Orona RN [facility] 2024-07-30 08:00:00 Problem: Falls, Risk of Goal: Absence of falls Outcome: Progressing as expected Problem: Discharge Planning Goal: Adequate for discharge Outcome: Progressing as expected Goal: Effective communication Outcome: Progressing as expected Problem: Venous Thromboembolism, (actual or risk of) Goal: Absence of venous thromboembolism (Risk) Outcome: Progressing as expected Problem: Pain Goal: Control of pain at or below patient's documented comfort goal Outcome: Progressing as expected Goal: Reduction in pain sensation Outcome: Progressing as expected Problem: Respiratory Function - Impaired Goal: Able to cough effectively Outcome: Progressing as expected Goal: Adequate oxygenation Outcome: Progressing as expected Goal: Adequate work of breathing Outcome: Progressing as expected Goal: Patent airway Outcome: Progressing as expected Problem: Cardiac Output - Decreased Goal: Cardiac output within specified parameters Outcome: Progressing as expected Goal: Absence of signs and symptoms of decreased cardiac output Outcome: Progressing as expected Problem: Skin integrity Impaired (Risk or Actual) Goal: Prevention of new skin breakdown Outcome: Progressing as expected THA Ahumada RN [facility] [employer] 2024-07-29 08:00:00 Problem: Falls, Risk of Goal: Absence of falls Outcome: Progressing as expected Problem: Discharge Planning Goal: Adequate for discharge Outcome: Progressing as expected Goal: Effective communication Outcome: Progressing as expected Problem: Venous Thromboembolism, (actual or risk of) Goal: Absence of venous thromboembolism (Risk) Outcome: Progressing as expected Problem: Pain Goal: Control of pain at or below patient's documented comfort goal Outcome: Progressing as expected Goal: Reduction in pain sensation Outcome: Progressing as expected Problem: Respiratory Function - Impaired Goal: Able to cough effectively Outcome: Progressing as expected Goal: Adequate oxygenation Outcome: Progressing as expected Goal: Adequate work of breathing Outcome: Progressing as expected Goal: Patent airway Outcome: Progressing as expected Problem: Cardiac Output - Decreased Goal: Cardiac output within specified parameters Outcome: Progressing as expected Goal: Absence of signs and symptoms of decreased cardiac output Outcome: Progressing as expected Problem: Skin integrity Impaired (Risk or Actual) Goal: Prevention of new skin breakdown Outcome: Progressing as expected Jalen [facility] [employer] 2024-07-28 12:28:35 Problem: Falls, Risk of Goal: Absence of falls Outcome: Progressing as expected Problem: Discharge Planning Goal: Adequate for discharge Outcome: Progressing as expected Goal: Effective communication Outcome: Progressing as expected Problem: Venous Thromboembolism, (actual or risk of) Goal: Absence of venous thromboembolism (Risk) Outcome: Progressing as expected Problem: Skin integrity Impaired (Risk or Actual) Goal: Prevention of new skin breakdown Outcome: Progressing as expected Problem: Pain Goal: Control of pain at or below patient's documented comfort goal Outcome: Progressing as expected Goal: Reduction in pain sensation Outcome: Progressing as expected Problem: Respiratory Function - Impaired Goal: Able to cough effectively Outcome: Progressing as expected Goal: Adequate oxygenation Outcome: Not progressing as expected Goal: Adequate work of breathing Outcome: Progressing as expected Goal: Patent airway Outcome: Progressing as expected Problem: Cardiac Output - Decreased Goal: Cardiac output within specified parameters Outcome: Progressing as expected Goal: Absence of signs and symptoms of decreased cardiac output Outcome: Progressing as expected Shelby Cardoza RN [facility] 2024-07-28 03:48:11 Pt able to tolerate BiPap for 4.5 hrs overnight. Repeatedly denies pain. In attempt to preserve skin and monitor more accurate I/O, male external catheter placed. Will monitor for efficacy. Problem: Falls, Risk of Goal: Absence of falls Outcome: Progressing as expected Problem: Discharge Planning Goal: Adequate for discharge Outcome: Progressing as expected Goal: Effective communication Outcome: Progressing as expected Problem: Venous Thromboembolism, (actual or risk of) Goal: Absence of venous thromboembolism (Risk) Outcome: Progressing as expected Problem: Pain Goal: Control of pain at or below patient's documented comfort goal Outcome: Progressing as expected Goal: Reduction in pain sensation Outcome: Progressing as expected Problem: Respiratory Function - Impaired Goal: Able to cough effectively Outcome: Progressing as expected Goal: Adequate oxygenation Outcome: Progressing as expected Goal: Adequate work of breathing Outcome: Progressing as expected Goal: Patent airway Outcome: Progressing as expected Problem: Cardiac Output - Decreased Goal: Cardiac output within specified parameters Outcome: Progressing as expected Goal: Absence of signs and symptoms of decreased cardiac output Outcome: Progressing as expected Problem: Skin integrity Impaired (Risk or Actual) Goal: Prevention of new skin breakdown Outcome: Progressing as expected Mary Grace Solis RN [facility] 2024-07-27 09:37:52 Problem: Falls, Risk of Goal: Absence of falls 07/27/2024937 by Shelby Cardoza RN Outcome: Progressing as expected 07/27/2024936 by Shelby Cardoza RN Outcome: Progressing as expected Problem: Discharge Planning Goal: Adequate for discharge 07/27/202438 by Shelby Cardoza RN Outcome: Progressing as expected 07/27/202437 by Shelby Cardoza RN Outcome: Not progressing as expected Goal: Effective communication 07/27/2024937 by Shelby Cardoza RN Outcome: Progressing as expected 07/27/2024936 by Shelby Cardoza RN Outcome: Progressing as expected Problem: Venous Thromboembolism, (actual or risk of) Goal: Absence of venous thromboembolism (Risk) 07/27/2024937 by Shelby Cardoza RN Outcome: Progressing as expected 07/27/2024936 by Shelby Cardoza RN Outcome: Progressing as expected Problem: Skin integrity Impaired (Risk or Actual) Goal: Prevention of new skin breakdown Outcome: Progressing as expected Problem: Pain Goal: Control of pain at or below patient's documented comfort goal 07/27/2024937 by Shelby Cardoza RN Outcome: Progressing as expected 07/27/2024936 by Shelby Cardoza RN Outcome: Progressing as expected Goal: Reduction in pain sensation 07/27/2024937 by Shelby Cardoza RN Outcome: Progressing as expected 07/27/2024936 by Shelby Cardoza RN Outcome: Progressing as expected Problem: Respiratory Function - Impaired Goal: Able to cough effectively 07/27/2024937 by Shelby Cardoza RN Outcome: Progressing as expected 07/27/2024936 by Shelby Cardoza RN Outcome: Progressing as expected Goal: Adequate oxygenation 07/27/2024937 by Shelby Cardoza RN Outcome: Progressing as expected 07/27/2024936 by Shelby Cardoza RN Outcome: Progressing as expected Goal: Adequate work of breathing 07/27/2024937 by Shelby Cardoza RN Outcome: Progressing as expected 07/27/2024936 by Shelby Cardoza RN Outcome: Progressing as expected Goal: Patent airway 07/27/2024 0938 by Shelby Cardoza RN Outcome: Progressing as expected 07/27/2024936 by Shelby Cardoza RN Outcome: Progressing as expected Problem: Cardiac Output - Decreased Goal: Cardiac output within specified parameters 07/27/2024 0938 by Shelby Cardoza RN Outcome: Progressing as expected 07/27/2024936 by Shelby Cardoza RN Outcome: Progressing as expected Goal: Absence of signs and symptoms of decreased cardiac output 07/27/2024937 by Shelby Cardoza RN Outcome: Progressing as expected 07/27/2024936 by Shelby Cardoza RN Outcome: Progressing as expected [facility] 2024-07-27 04:14:26 Pt able to tolerate BiPap for a total of 4 hours this shift. Problem: Falls, Risk of Goal: Absence of falls Outcome: Progressing as expected Problem: Discharge Planning Goal: Adequate for discharge Outcome: Progressing as expected Goal: Effective communication Outcome: Progressing as expected Problem: Venous Thromboembolism, (actual or risk of) Goal: Absence of venous thromboembolism (Risk) Outcome: Progressing as expected Problem: Pain Goal: Control of pain at or below patient's documented comfort goal Outcome: Progressing as expected Goal: Reduction in pain sensation Outcome: Progressing as expected Problem: Respiratory Function - Impaired Goal: Able to cough effectively Outcome: Progressing as expected Goal: Adequate oxygenation Outcome: Progressing as expected Goal: Adequate work of breathing Outcome: Progressing as expected Goal: Patent airway Outcome: Progressing as expected Problem: Cardiac Output - Decreased Goal: Cardiac output within specified parameters Outcome: Progressing as expected Goal: Absence of signs and symptoms of decreased cardiac output Outcome: Progressing as expected [employer] 2024-07-26 13:20:42 Problem: Falls, Risk of Goal: Absence of falls Outcome: Progressing as expected Problem: Discharge Planning Goal: Adequate for discharge Outcome: Progressing as expected Goal: Effective communication Outcome: Progressing as expected Problem: Venous Thromboembolism, (actual or risk of) Goal: Absence of venous thromboembolism (Risk) Outcome: Progressing as expected Problem: Pain Goal: Control of pain at or below patient's documented comfort goal Outcome: Progressing as expected Goal: Reduction in pain sensation Outcome: Progressing as expected Problem: Respiratory Function - Impaired Goal: Able to cough effectively Outcome: Progressing as expected Goal: Adequate oxygenation Outcome: Progressing as expected Goal: Adequate work of breathing Outcome: Progressing as expected Goal: Patent airway Outcome: Progressing as expected Problem: Cardiac Output - Decreased Goal: Cardiac output within specified parameters Outcome: Progressing as expected Goal: Absence of signs and symptoms of decreased cardiac output Outcome: Progressing as expected [facility] 2024-07-25 20:05:27 Problem: Falls, Risk of Goal: Absence of falls Outcome: Progressing as expected Problem: Discharge Planning Goal: Adequate for discharge Outcome: Progressing as expected Goal: Effective communication Outcome: Progressing as expected Problem: Venous Thromboembolism, (actual or risk of) Goal: Absence of venous thromboembolism (Risk) Outcome: Progressing as expected Problem: Pain Goal: Control of pain at or below patient's documented comfort goal Outcome: Progressing as expected Goal: Reduction in pain sensation Outcome: Progressing as expected Problem: Respiratory Function - Impaired Goal: Able to cough effectively Outcome: Progressing as expected Goal: Adequate oxygenation Outcome: Progressing as expected Goal: Adequate work of breathing Outcome: Progressing as expected Goal: Patent airway Outcome: Progressing as expected Problem: Cardiac Output - Decreased Goal: Cardiac output within specified parameters Outcome: Progressing as expected Goal: Absence of signs and symptoms of decreased cardiac output Outcome: Progressing as expected [facility] 2024-07-25 12:30:21 Problem: Falls, Risk of Goal: Absence of falls Outcome: Progressing as expected Problem: Discharge Planning Goal: Adequate for discharge Outcome: Progressing as expected Goal: Effective communication Outcome: Progressing as expected Problem: Venous Thromboembolism, (actual or risk of) Goal: Absence of venous thromboembolism (Risk) Outcome: Progressing as expected Problem: Pain Goal: Control of pain at or below patient's documented comfort goal Outcome: Progressing as expected Goal: Reduction in pain sensation Outcome: Progressing as expected Problem: Respiratory Function - Impaired Goal: Able to cough effectively Outcome: Progressing as expected Goal: Adequate oxygenation Outcome: Progressing as expected Goal: Adequate work of breathing Outcome: Progressing as expected Goal: Patent airway Outcome: Progressing as expected Problem: Cardiac Output - Decreased Goal: Cardiac output within specified parameters Outcome: Progressing as expected Goal: Absence of signs and symptoms of decreased cardiac output Outcome: Progressing as expected Jennifer Toribio RN [facility] 2024-07-24 21:44:59 Problem: Falls, Risk of Goal: Absence of falls Outcome: Progressing as expected Problem: Discharge Planning Goal: Adequate for discharge Outcome: Progressing as expected Goal: Effective communication Outcome: Progressing as expected Problem: Venous Thromboembolism, (actual or risk of) Goal: Absence of venous thromboembolism (Risk) Outcome: Progressing as expected Problem: Pain Goal: Control of pain at or below patient's documented comfort goal Outcome: Progressing as expected Goal: Reduction in pain sensation Outcome: Progressing as expected Problem: Respiratory Function - Impaired Goal: Able to cough effectively Outcome: Progressing as expected Goal: Adequate oxygenation Outcome: Progressing as expected Goal: Adequate work of breathing Outcome: Progressing as expected Goal: Patent airway Outcome: Progressing as expected Problem: Cardiac Output - Decreased Goal: Cardiac output within specified parameters Outcome: Progressing as expected Goal: Absence of signs and symptoms of decreased cardiac output Outcome: Progressing as expected Michaela Ruby RN [facility] 2024-07-24 15:55:58 Images from the original note were not included. Pharmacy Recommendations for Patient Admission: No recommendations. The [facility] medication list has been updated and reflected in the chart below. Please use the [facility] Med List for ordering home doses during admission. Patient Adherence: Adherent to all medications. Source(s) used in interview: Outpatient Pharmacy, Family Member, and Medical Records Interview limitations: None Medications Added Medications Removed Medications Modified Amiodarone 200 mg None None Allergies as of 07/23/2024 - Reviewed 07/23/2024 Allergen Reaction Noted Versed [midazolam] Other - See comments 07/23/2024 Pharmacy Updated [facility] Med List Medication Sig amiodarone 200 mg tablet Take 1 tablet by mouth in the morning. amLODIPine 5 mg tablet Take 1 tablet by mouth in the morning and 1 tablet in the evening. apixaban (ELIQUIS) 5 mg tablet Take 1 tablet by mouth in the morning and 1 tablet in the evening. atorvastatin 40 mg tablet Take 1 tablet by mouth at bedtime. cetirizine (ZYRTEC) 10 mg tablet Take 1 tablet by mouth in the morning. clopidogreL 75 mg tablet Take 1 tablet by mouth in the morning. diphenhydrAMINE (BENADRYL ALLERGY) 50 mg tablet Take 1 tablet by mouth at bedtime as needed for Sleep. doxazosin 2 mg tablet Take 1 tablet by mouth at bedtime. fluticasone 27.5 mcg/actuation nasal spray Use 1 [place] in each nostril in the morning and 1 [place] in the evening. furosemide 20 mg tablet Take 1 tablet by mouth every Wednesday, Wednesday and Wednesday. isosorbide dinitrate 30 mg tablet Take 2 tablets by mouth in the morning. levothyroxine 25 mcg tablet Take 1 tablet by mouth every morning. meclizine 25 mg tablet Take 1 tablet by mouth 2 (two) times daily as needed for Dizziness. metoprolol tartrate 25 mg tablet Take 1 tablet by mouth in the morning and 1 tablet in the evening. ondansetron 4 mg tablet Take 1 tablet by mouth every 8 (eight) hours. polyethylene glycol 3350 (MIRALAX) 17 gram powder Take 1 Packet by mouth once daily as needed for Constipation. triamcinolone 0.5 % cream Apply 1 Squirt to area(s) 3 (three) times daily as needed for Rash or Itching (Apply to scrotal area.). Outpatient Pharmacy Contact Information: No Pharmacies Listed Thank you for the opportunity to participate in the care of this patient. Maria Teresa Claros RPH 3:54 PM, 07/24/2024 [facility] Department of Pharmacy - [facility] Phone: ADC: [phone] Maria Teresa Claros [facility] 2024-07-24 11:26:39 Problem: Falls, Risk of Goal: Absence of falls Outcome: Progressing as expected Problem: Discharge Planning Goal: Adequate for discharge Outcome: Progressing as expected Goal: Effective communication Outcome: Progressing as expected Problem: Venous Thromboembolism, (actual or risk of) Goal: Absence of venous thromboembolism (Risk) Outcome: Progressing as expected Problem: Pain Goal: Control of pain at or below patient's documented comfort goal Outcome: Progressing as expected Goal: Reduction in pain sensation Outcome: Progressing as expected Problem: Respiratory Function - Impaired Goal: Able to cough effectively Outcome: Progressing as expected Goal: Adequate oxygenation Outcome: Progressing as expected Goal: Adequate work of breathing Outcome: Progressing as expected Goal: Patent airway Outcome: Progressing as expected Problem: Cardiac Output - Decreased Goal: Cardiac output within specified parameters Outcome: Progressing as expected Goal: Absence of signs and symptoms of decreased cardiac output Outcome: Progressing as expected Carolina Zimmerman RN [facility] 2024-07-24 02:29:31 Problem: Falls, Risk of Goal: Absence of falls Outcome: Progressing as expected Problem: Discharge Planning Goal: Adequate for discharge Outcome: Progressing as expected Goal: Effective communication Outcome: Progressing as expected Problem: Venous Thromboembolism, (actual or risk of) Goal: Absence of venous thromboembolism (Risk) Outcome: Progressing as expected Problem: Pain Goal: Control of pain at or below patient's documented comfort goal Outcome: Progressing as expected Goal: Reduction in pain sensation Outcome: Progressing as expected Problem: Respiratory Function - Impaired Goal: Able to cough effectively Outcome: Progressing as expected Goal: Adequate oxygenation Outcome: Progressing as expected Goal: Adequate work of breathing Outcome: Progressing as expected Goal: Patent airway Outcome: Progressing as expected Problem: Cardiac Output - Decreased Goal: Cardiac output within specified parameters Outcome: Progressing as expected Goal: Absence of signs and symptoms of decreased cardiac output Outcome: Progressing as expected [facility] 2024-07-23 23:21:34 Patient admitted to [facility] for diagnosis of acute respiratory failure with hypoxemia. Patient agrees to admission, discussed plan of care with patient and family. Patient is awake, A&Ox4, RR even and unlabored on RA. Color appropriate for race. PIV intact x2. No adverse reaction to medications administered while in ED. Belongings with patient to unit. Chepe Hsu RN [facility] 2024-07-23 23:16:48 Nurse Report Report given to Mateusz MORGAN. Chief complaint, assessment findings, infusion verify and orders reviewed. Chepe Hsu RN T [facility] 2024-07-23 19:26:47 Pt brought by family in wheel chair with CC of hypoxia for the past couple days. Pt states he feels fine. In triage pt is 85% RA T [facility] 2024-07-23 19:20:00 Associated Order(s): Critical Care [facility] Emergency Department Note Patient Name: Vivek Vallejo Date of : 1940 84 year old male Treatment [facility] Primary Care Physician: Aydee Larsen Patient Escorted by: Family [5] Mode of Arrival: Personal means [1] EMS Treatment Prior to ED Arrival: [facility] treatment: None Travel and Exposure Screening: Symptoms Does patient have any of these symptoms?: (not recorded) Exposure Screening Has patient had contact with someone with a communicable disease in the last month?: (not recorded) Diseases exposed to:: (not recorded) Is Patient ?: (not recorded) Exposure Date: (not recorded) Chief Complaint: Chief Complaint Patient presents with Other hypoxia Chest Pain History of Present Illness: This patient was brought to the emergency department because of low oxygen saturation. The patient's family members relate that the patient's oxygen was low today but there is no complaint from the patient in particular. History provided by: Patient and relative Past Medical History/Immunizations: History reviewed. No pertinent past medical history. Tetanus received in last 5 years: Unknown Allergies: Allergies Allergen Reactions Versed [Midazolam] Other - See comments Hyper and hypotension, irregular breathing Past Social History: Substance & Sexual Activity No substance use or sexual activity history on file. Past Surgical History: History reviewed. No pertinent surgical history. Review of Systems: Review of Systems Constitutional: Positive for activity change. Negative for chills and fever. Eyes: Negative for discharge. Respiratory: Negative for cough and chest tightness. Cardiovascular: Positive for leg swelling. Negative for chest pain. Gastrointestinal: Negative for abdominal pain. Genitourinary: Negative for hematuria. Musculoskeletal: Negative for neck pain. Physical Exam: ED Triage Vitals Weight 07/23/241927 77.1 kg (170 lb) Actual or estimated -- Height 07/23/241927 1.676 m (5' 6") BP 07/23/241927 (!) 153/63 Pulse 07/23/241927 59 Resp 07/23/241927 20 Temp 07/23/241927 36.9 ?C (98.4 ?F) Temp source 07/23/24 2300 Axillary SpO2 07/23/241927 (!) 84 % Measured on 07/23/241927 Room air Physical Exam Vitals reviewed. Constitutional: Appearance: He is ill-appearing. HENT: Head: Normocephalic and atraumatic. Right Ear: Tympanic membrane, ear canal and external ear normal. Left Ear: Ear canal and external ear normal. Nose: Nose normal. Mouth/Throat: Mouth: Mucous membranes are dry. Pharynx: No oropharyngeal exudate or posterior oropharyngeal erythema. Eyes: General: Right eye: No discharge. Left eye: No discharge. Conjunctiva/sclera: Conjunctivae normal. Cardiovascular: Rate and Rhythm: Normal rate and regular rhythm. Heart sounds: Murmur heard. Pulmonary: Effort: Accessory muscle usage present. Breath sounds: Decreased air movement present. Examination of the right-lower field reveals decreased breath sounds. Examination of the left-lower field reveals decreased breath sounds. Decreased breath sounds and rales present. Abdominal: Palpations: Abdomen is soft. Tenderness: There is no abdominal tenderness. Musculoskeletal: Cervical back: Neck supple. No rigidity or tenderness. Right lower leg: Edema present. Left lower leg: Edema present. Skin: General: Skin is warm. Coloration: Skin is not jaundiced. Findings: No bruising. Neurological: Mental Status: He is alert. Motor: No weakness. Radiology: CT Chest pulmonary angiogram Final Result EXAM: CT CHEST PULMONARY ANGIOGRAM CLINICAL INDICATION: 84 years old Male with Pulmonary embolism (PE) suspected, high prob Comparison: None TECHNIQUE: Volumetric helical CT angiogram was performed of the chest (lung apices to bases) with IV contrast. Images were reconstructed at 1.25 mm slice thickness. Axial MIPs, as well as coronal and sagittal MPRs were generated and reviewed. FINDINGS: Devices: None HEART AND GREAT VESSELS: The opacification of the pulmonary vasculature is appropriate. No filling defects are seen through the level of the segmental pulmonary arteries. The pulmonary trunk is normal in caliber. The thoracic aorta is normal in caliber with Mild atherosclerotic calcifications. There are severe calcifications of the coronary vessels. The heart is normal in size. No pericardial abnormalities are identified. The RV to LV is normal. MEDIASTINUM AND LOWER NECK: A 6 mm polypoid nodule is seen in the right lateral aspect of the distal trachea. The esophagus is within normal limits. The included thyroid gland appears normal. LYMPH NODES: Scattered small lymph nodes in both sides of the mediastinum and hilar regions, some of which are calcified. No evidence of intrathoracic lymphadenopathy. LUNGS AND PLEURA: Elevated bilateral diaphragm with underlying lung atelectasis, more on the left side. No suspicious nodules. Scattered bilateral pleural calcification are seen. VISUALIZED UPPER ABDOMEN: The included solid organs and hollow viscus appear within normal limits apart from small hepatic and splenic calcified granulomas. OSSEOUS STRUCTURES AND SOFT TISSUES: No focal osseous lesions are detected. Internal fixation of the left scapula. The soft tissues appear normal. IMPRESSION 1. No evidence of acute or chronic pulmonary embolism through the level of the subsegmental branches. AIDOC (computer aided detection software) confirms no filling defects in the pulmonary artery branches. 2. A 6 mm tracheal polyp. 3. Elevated diaphragm bilaterally with underlying lung atelectasis. XR Chest 1 vw Preliminary Result EXAM: XR CHEST 1 VW COMPARISON: None HISTORY:84 years old, Male with hypoxia . IMPRESSION FINDINGS/IMPRESSION: Lordotic frontal view reveals obtained. Lungs/Pleura: Low lung volumes are noted. Left lower lobe opacity, may represent aspiration or atelectasis. Suspected small left-sided pleural effusion. No pneumothorax. Heart/Mediastinum: The cardiac silhouette is obscured by overlying opacities. Bones and soft tissues: Osteopenia. Preliminary Report Dictated by Resident: Angel Shaw Lab Results: Lab Results CBC WITH DIFF - Abnormal Result Value Ref Range WBC 8.99 4.20 - 10.70 10*3/?L RBC 2.69 (*) 4.26 - 5.52 10*6/?L HGB 7.7 (*) 12.2 - 16.4 g/dL HCT 26.1 (*) 38.4 - 49.3 % MCV 97.0 (*) 81.7 - 95.6 fL MCH 28.6 26.1 - 32.7 pg MCHC 29.5 (*) 31.2 - 35.0 g/dL RDW-SD 55.4 (*) 38.5 - 51.6 fL RDW-CV 15.8 (*) 12.1 - 15.4 % PLT 258 150 - 328 10*3/?L MPV 10.2 9.8 - 13.0 fL NRBC/100 WBC 0.0 0.0 - 10.0 /100 WBCs NRBC x10 3 <0.01 10*3/?L GRAN MAT (NEUT) % 83.8 % IMM GRAN % 0.40 % LYMPH % 6.5 % MONO % 7.9 % EOS % 1.1 % BASO % 0.3 % GRAN MAT x10 3 (ANC) 7.53 (*) 1.99 - 6.95 10*3/uL IMM GRAN x10 3 0.04 0.00 - 0.06 10*3/uL LYMPH x10 3 0.58 (*) 1.09 - 3.23 10*3/uL MONO x10 3 0.71 0.36 - 1.02 10*3/uL EOS x10 3 0.10 0.06 - 0.53 10*3/uL BASO x10 3 0.03 0.01 - 0.09 10*3/uL COMP. METABOLIC PANEL (96027) - Abnormal NA 142 135 - 145 mmol/L K 4.6 3.5 - 5.0 mmol/L CL 104 98 - 108 mmol/L CO2 TOTAL 35 (*) 23 - 31 mmol/L AGAP 3 2 - 16 BUN 47 (*) 7 - 23 mg/dL GLUCOSE 209 (*) 70 - 110 mg/dL CREATININE 1.71 (*) 0.60 - 1.25 mg/dL TOTAL BILI 0.7 0.1 - 1.1 mg/dL CALCIUM 11.3 (*) 8.6 - 10.6 mg/dL T PROTEIN 6.5 6.3 - 8.2 g/dL ALBUMIN 3.6 3.5 - 5.0 g/dL ALK PHOS 109 34 - 122 U/L ALTv 28 5 - 50 U/L AST(SGOT) 22 13 - 40 U/L eGFR 39.5 mL/min/1.73m2 TROPONIN I - Abnormal TROPONIN I 0.071 (*) <=0.034 ng/mL N-TERMINAL PRO-BNP - Abnormal NT-proBNP 2,180 (*) <=125 pg/mL ACUTE CARE ARTERIAL BLOOD GAS - Abnormal PH 7.34 (*) 7.35 - 7.45 PCO2 56 (*) 35 - 45 mmHg PO2 90 80 - 100 mmHg HCO3 29 (*) 22 - 26 mEq/L BE 2.0 -3.0 - 3.0 mEq/L PROTHROMBIN TIME / INR ACTIVATED PARTIAL THRMPLAS HELEN PROTHROMBIN TIME / INR EKG: If EKG completed, see Procedure Note. Orders and Treatments: Orders Placed This Encounter Procedures Critical Care XR Chest [address] Chest pulmonary angiogram CBC WITH DIFF COMP. METABOLIC PANEL (24258) TROPONIN I N-TERMINAL PRO-BNP Acute Care Arterial Blood Gas. CBC with Differential Basic Metabolic Panel (NA, K, CL, CO2, Glucose, BUN, Creatinine, CA) Prothrombin Time (PT) / INR aPTT Prothrombin Time / INR aPTT (for use with Heparin Infusion) CBC Without DIFF Prothrombin Time / INR COVID-19 (ID Now Rapid Testing) Influenza A B RSV COVID NAAT Lab Only COVID Interpretation Acute Care Arterial Blood Gas. Transferrin Ferritin Serum Iron Panel Occult (Guaiac) Blood Total Iron Binding Capacity Urinalysis Urine Culture Troponin I Troponin I AC ABG + Lactic Acid Acute Care Arterial Blood Gas. Glycosylated Hemoglobin (A1C) Basic Metabolic Panel (NA, K, CL, CO2, GLUCOSE, BUN, CREATININE, CA) Magnesium Phosphorus Consult Cardiology Consult Pulmonary Medicine Consult Adult Physical Therapy High Flow Nasal Cannula - Adult BI-PAP Orders Placed This Encounter Medications ondansetron (ZOFRAN (PF)) injection 4 mg iopamidol (ISOVUE 370-500 mL) injection 65 mL furosemide (LASIX) injection 40 mg DISCONTD: heparin (porcine) injection 5,000 Units aspirin chewable tablet 162 mg HEPARIN SODIUM (PORCINE) 1,000 UNIT/ML BOLUS ACS ORDER SET DISCONTD: heparin (1,000 unit/mL, 10 mL vial) for Rebolusing DISCONTD: heparin 25,000 Units/250 mL (Premixed Bag) in 0.45 % NS DISCONTD: aspirin chewable tablet 81 mg levothyroxine 25 mcg tablet clopidogreL 75 mg tablet furosemide 20 mg tablet isosorbide dinitrate 30 mg tablet cetirizine (ZYRTEC) 10 mg tablet atorvastatin 40 mg tablet doxazosin 2 mg tablet amLODIPine 5 mg tablet apixaban (ELIQUIS) 5 mg tablet metoprolol tartrate 25 mg tablet fluticasone 27.5 mcg/actuation nasal spray meclizine 25 mg tablet ondansetron 4 mg tablet triamcinolone 0.5 % cream polyethylene glycol 3350 (MIRALAX) 17 gram powder diphenhydrAMINE (BENADRYL ALLERGY) 50 mg tablet alum-mag hydroxide-simeth (MAG-AL PLUS) 200-200-20 mg/5 mL suspension 30 mL DISCONTD: levothyroxine (SYNTHROID) tablet 25 mcg clopidogreL (PLAVIX) 75 mg tablet 75 mg DISCONTD: isosorbide dinitrate (ISORDIL) tablet 60 mg cetirizine (ZYRTEC) tablet 10 mg atorvastatin (LIPITOR) tablet 40 mg doxazosin (CARDURA) tablet 2 mg DISCONTD: amLODIPine (NORVASC) tablet 5 mg DISCONTD: metoprolol tartrate (LOPRESSOR) tablet 25 mg meclizine (ANTIVERT) tablet 25 mg ondansetron (ZOFRAN) tablet 4 mg DISCONTD: diphenhydrAMINE (BENADRYL) tablet 50 mg furosemide (LASIX) injection 40 mg DISCONTD: levothyroxine (SYNTHROID) injection 18 mcg sodium ferric gluconate (FERRLECIT) 125 mg in NaCl 0.9% (NS) 100 mL IV piggyback perflutren protein-A microsphr (OPTISON) injection 3 mL amiodarone 200 mg tablet DISCONTD: spironolactone (ALDACTONE) tablet 25 mg levothyroxine (SYNTHROID) tablet 25 mcg First Provider Eval: ED Events Date/Time Event User Comments 07/23/241934 Medical Screening Begins FORD DANIELS DO -- 07/23/241934 First Provider Evaluation DANIELS FORD DORSEY -- ED COURSE Diagnosis/Impression as of 07/25/24 0324 Acute respiratory failure with hypoxemia Acute congestive heart failure, unspecified heart failure type Elevated troponin Procedures: Critical Care Performed by: Ford Daniels DO Authorized by: Ford Daniels DO Critical care provider statement: Critical care time (minutes): 36 Critical care time was exclusive of: Separately billable procedures and treating other patients and teaching time Critical care was necessary to treat or prevent imminent or life-threatening deterioration of the following conditions: Cardiac failure and respiratory failure Critical care was time spent personally by me on the following activities: Pulse oximetry, ordering and review of radiographic studies and examination of patient MDM: Medical Decision Making Patient was evaluated for the complaint of Other (hypoxia) and Chest Pain Diagnoses considered but not limited to: Congestive Heart Failure Dyspnea (acute) Myocardial Infarction (acute) Pericarditis Pleurisy Pleuritis Pneumomediastinum Pneumonia Pneumothorax Pulmonary Edema Pulmonary Embolism Anxiety Bronchospasm COPD (acute) Diabetic Ketoacidosis Respiratory Failure (acute) Upper Respiratory Infection. Labs:were ordered, and resulted, any relevant abnormalities were considered. Imaging:Ordered, and resulted, any relevant abnormalities were considered. Procedures:were not performed. History, physical exam findings, results of visit, diagnosis, medication regimens and plan of future care have been considered. Additional MDM may be found in the ED course. Vital signs were rechecked before final disposition and determined to be stable. Amount and/or Complexity of Data Reviewed Labs: ordered. Decision-making details documented in ED Course. Radiology: ordered. Decision-making details documented in ED Course. Risk Prescription drug management. Decision regarding hospitalization. Flowsheet Documentation: Patient was seen for hypoxia. He did have accessory muscle use of breathing. The patient initially received BiPAP and then received high flow O2 by nasal cannula to help with his respiratory status. Pulse oximetry did improve and the patient related subjective improvement. Scoring Tools: No data recorded Disposition/Condition: ED Disposition ED Disposition Admit - ICU Condition -- Comment -- Discharge Medications: Current Discharge Medication List STOP taking these medications amiodarone 200 mg tablet Comments: Reason for Stopping: amLODIPine 5 mg tablet Comments: Reason for Stopping: apixaban (ELIQUIS) 5 mg tablet Comments: Reason for Stopping: atorvastatin 40 mg tablet Comments: Reason for Stopping: cetirizine (ZYRTEC) 10 mg tablet Comments: Reason for Stopping: clopidogreL 75 mg tablet Comments: Reason for Stopping: diphenhydrAMINE (BENADRYL ALLERGY) 50 mg tablet Comments: Reason for Stopping: doxazosin 2 mg tablet Comments: Reason for Stopping: fluticasone 27.5 mcg/actuation nasal spray Comments: Reason for Stopping: furosemide 20 mg tablet Comments: Reason for Stopping: isosorbide dinitrate 30 mg tablet Comments: Reason for Stopping: levothyroxine 25 mcg tablet Comments: Reason for Stopping: meclizine 25 mg tablet Comments: Reason for Stopping: metoprolol tartrate 25 mg tablet Comments: Reason for Stopping: ondansetron 4 mg tablet Comments: Reason for Stopping: polyethylene glycol 3350 (MIRALAX) 17 gram powder Comments: Reason for Stopping: triamcinolone 0.5 % cream Comments: Reason for Stopping: Follow-up: Electronically signed by: Ford Daniels DO 07/25/24 0324 [facility]
[2024-07-31] MEDS ORDERED: CETIRIZINE HCL 5 MG TABLET PO PRN (15:00)
[2024-07-31] MEDS: PANTOPRAZOLE 40MG TABLET PO SCH (17:04)
[2024-07-31] MEDS: FUROSEMIDE 40 MG TABLET PO SCH (17:04)
[2024-07-31 18:58] LABS: Specific Gravity 1.012 (1.005-1.030); Sqamous Epithelial <5 /HPF (None Seen); Urine Bacteria <20 /HPF (<20); Urine Bilirubin NEGATIVE (Negative); Urine Blood Negative (Negative); Urine Clarity Clear (Clear); Urine Color Light-Yellow (Yellow); Urine Culture Reflex Order NOT NEEDED; Urine Glucose NEGATIVE (Negative); Urine Ketones NEGATIVE (Negative); Urine Microscopic Reflex YN ORDER UMIC; Urine Nitrite NEGATIVE (Negative); Urine Protein NEGATIVE (Negative); Urine RBC <5 /HPF (None Seen); Urine Urobilinogen 1+ (Normal); Urine Yeast (Budding) Trace /HPF (None Seen); Urine pH 8.5 (5.0-7.0)
[2024-07-31] MEDS: ATORVASTATIN 40 MG TAB PO SCH (19:58)
[2024-07-31] MEDS: POLYETHYL GLY 3350 17 GM/DOSE PO PRN (19:58)
[2024-07-31] MEDS: MELATONIN 3 MG TABLET PO SCH (19:58)
[2024-07-31] MEDS: DOXAZOSIN 2 MG TAB PO SCH (19:58)
[2024-07-31] MEDS: CEFDINIR 300 MG CAP PO SCH (19:58)
--- NOTE | 2024-08-01 02:17 | HP ---
Date of Admission: 07/31/2024 Time Of Service: 6 p.m. Chief Complaint: "I need to get stronger, I had heart procedures, I need to get stronger, and my blas gs need to get better." History Of Present Illness: Mr. Vallejo is an 84-year-old patient with multiple medical problems includi ng coronary artery disease, status post stent placement in April 2024, congestive heart failure, ch ronic kidney stage 3 disease, hypertension, dyslipidemia, benign prostatic hypertrophy, diabetes sohan itus type 2, iron deficiency anemia, and obstructive sleep apnea. The patient was previously indepen dent, residing alone in [place], driving and managing all activities of daily living without assistan ce. However, after his stent placement and cardiac stent, he experienced functional decline, was tra nsferred to a halfway facility where he made minimal progress. He relocated to [place] to be c lose to his daughter and again home health with a goal of progressing to outpatient physical therapy. However, on the 23 of July, he developed acute shortness of breath, [facility] where he was found to be in acute hypoxic and hypercapnic respiratory failure se condary to combination of CHF exacerbation with underlying lung atelectasis and untreated sleep apnea . He had an arterial blood gas that confirmed respiratory acidosis requiring supplemental oxygenatio n and BiPAP therapy at night. However, the patient was struggling to tolerate BiPAP for more than 4 hours due to discomfort with the mask. Imaging did show bilateral elevation of the diaphragm bilater ally on both sides with underlying lung atelectasis. Also have low lung volumes on inspiration. Fur thermore, there was a left lower lobe opacity concerning for aspiration pneumonia or atelectasis and small left pleural effusion. A thoracic echocardiogram done on 07/24 did reveal regional wall motion abnormalities with visual estimated ejection fraction of 40%. He had a pseudo normal diastolic dysf unction and mild aortic stenosis. In addition, he had mildly enlarged aortic root and ascending aort a. Blood work did show white blood cell elevated slightly to 11.1, hemoglobin slightly decreased to 9.7, and BUN slightly elevated to 35. While he was hospitalized, he developed sinus bradycardia requ iring an adjustment to beta andres and telemetry monitoring. He was given IV diuretics, IV iron rep lacement, and bladder management with Garza catheter for his chronic incontinence and benign prostati c hypertrophy management. He was seen by the Cardiology Service, Pulmonology Service, and evaluated by the Therapy Service and was recommended that the patient continue a sleep study once outpatient. He did remain on oxygen about 2 L, requiring that as he would exert himself and oxygenation will drop . Since the patient had a significant decline in his functioning, he was evaluated by Therapy and fo und to require moderate assistance for bed mobility, for transfers, for ambulation with a rolling wal ker, only able to tolerate a few feet before exertional hypoxia limited his mobilization. He was abl e to ambulate only about 20 feet in halfway prior to the stay and prior to that without an as sistive device. Now, he is severely limited. He has also dysphagia, difficulty swallowing requiring chopped textures and required Speech to help him reduce risk of aspiration pneumonia. Due to his mu lti-system involvement and significant need for therapy, his unstable cardiopulmonary status, anemia, dysphagia, Mr. Vallejo is requiring close monitoring and management of his medical condition as he does his rehabilitation. As a result, he would benefit greatly from aggressive inpatient rehabilitation w here all of these needs can be addressed including his volume overload, electrolyte issues, arrhythmi a, further management of his pulmonary status and kidney status. halfway will be very approp riate overnight on a daily basis in addition to daily physician evaluation and management. If he is to be discharged to a lower level facility or to home, it is likely he will require worsen and will e nd up back in hospital. Therefore, inpatient rehabilitation is necessary for him to improve and retu rn towards prior level of functioning and reduce risk of rehospitalization. Past Medical History: Hypertension, atrial fibrillation, benign prostatic hypertrophy with urinary i ncontinence, hypothyroidism, dyslipidemia, obstructive sleep apnea, and congestive heart failure. Allergies: MIDAZOLAM. Medications: Tylenol 500 mg every 6 hours as needed, amiodarone 200 mg daily, Lipitor 40 mg at bedti me, cefdinir 300 mg twice daily from 07/31/2024 going on 08/04/2024, 8 doses ordered, Zyrtec 10 mg da diego, Plavix 75 mg daily, Cardura 2 mg at bedtime, Lexapro 10 mg daily, ferrous sulfate 325 mg daily, Lasix 40 mg twice daily, Synthroid 0.025 mg daily, meclizine 25 mg at bedtime, melatonin 3 mg at bedt shayna, Zofran 4 mg every 8 hours as needed, Protonix 40 mg twice daily, Senokot-S 1 at bedtime, spirono lactone 25 mg daily. Laboratory Studies: Urinalysis on 07/31 shows pH 8.5, urobilinogen 1+, esterase 75, and trace buddin g yeast. He does have pending additional blood work, however, just prior to his admission, his white blood cell count was 7.38, hemoglobin 8.3, hematocrit 27.7, platelets 221. His sodium was 138, pota ssium 4.0, glucose 89, BUN 30, creatinine 1.22, total cholesterol 98, triglycerides 49, HDL 42, LDL 4 6. Family History: Noncontributory. Social History: The patient lives alone, now he is close to his daughter. No alcohol, tobacco, or I V drug use. Review of Systems: Does report some difficulty with bowel movements. We will work on improving bowel movements with sto ol softeners, laxatives, and some difficulty sleeping at night, will have melatonin on board. Did y he was actually being awakened every few hours and that will be very helpful as he is in rehab and relapse sleep, so he can have better therapy in the morning. Current Level Of Functioning: Currently, Mr. Vallejo is independent with eating, setup assistance requir ed for grooming, moderate assistance for bathing, upper and lower body dressing and donning and doffi ng footwear. His toileting and transfer from bed to chair to wheelchair are at a moderate assistance level. Tub transfer moderate assistance, ambulation 2 feet with moderate assistance required. Physical Examination: Vital Signs: Blood pressure is 129/48, pulse 65, respiratory rate 18, temperature 98.3, oxygen satur ation 92%. Weight 178 pounds, height 5 feet 6 inches. General: Mr. Vallejo is lying in his bed. He is in no significant distress. HEENT: He appears normocephalic, atraumatic. Sclerae anicteric. Oropharynx is moist and pink. Neck: Supple. Chest: Does show decreased breath sounds bilaterally. Lower Extremities: Very trace edema in the lower extremities. Otherwise, he has diffuse weakness of upper and lower extremities, at least 4/5 strength proximally, distally. Rehab And Medical Assessment And Plan: Mr. Vallejo is admitted to inpatient rehabilitation unit with [facility] airment category 14, cardiac. His impairment group code is 09, cardiac. Etiologic diagnosis, combin ed diastolic and systolic congestive heart failure exacerbation. His comorbid conditions include hyp ertension, atrial fibrillation, benign prostatic hypertrophy, hypothyroidism, dyslipidemia, urinary i ncontinence which is persisting hypertrophy, combined congestive heart failure, stage 3 kidney diseas e, dyslipidemia, diabetes mellitus, iron deficiency anemia, obstructive sleep apnea. Plan: In terms of his plan, he will have physical, occupational, and speech therapy 3.5 hours, 5 of 7 days. His comorbid conditions which have been listed will be managed by continuing all medications which have been noted above. He will have a repeat chest x-ray as appropriate, urinalysis will foll ow by urine cultures, and antibiotics will be started or adjusted. He is currently on cefdinir, that will be continued. He has multiple medications including for DVT risk reduction, for stroke risk re duction, for stool softening, for sleep, and for pain, and those will be continued as appropriate. Comorbidities That Are Impacting Rehabilitation: His obstructive sleep apnea may make it difficult f or him to sleep at night. If the patient is able to, will be able to have BiPAP instituted during ni ghttime. In addition, incentive spirometry will be aggressively encouraged to help him return toward s prior level of functioning, where he is not limited by his oxygenation status. He does have signif icant risk of stroke and myocardial infarction. Those are medicated as noted above. He currently li ves alone and the goal will be for him to be able to go back home and be independent, but that may be difficult if the patient is not thriving and doing very well, but that goal again will be to go back home. Rehab Specific Plan: Mr. Vallejo will have physical, occupational, and speech therapy 3.5 hours, 5 of 7 days, to improve his ability to transfer from bed to a chair, to a wheelchair, to a rolling walker, t o get on and off the toilet, in and out of shower. Also Therapy will help with him dressing upper an d lower body, donning and doffing footwear, and being able to mobilize more than household distances at least 250 feet with a walker and wheelchair and go up and down 10 steps. In addition, he will als o work with Speech Therapy to help with his swallowing, reduce aspiration risk, and to make safe deci sions in terms of mobilization, ambulation, and medication management. Mr. Vallejo has a good understanding of the process of admission to the inpatient rehabilitation unit and how he will benefit from physical, occupational, and speech therapy. Again, 24 hours a day, 7 days a week skilled rehabilitation and nursing, daily physician evaluation and management, and social serv ices evaluation and management for discharge planning, home equipment, and to follow up after. If ne ed be, additional help will be sought from the Hospitalist Service. Barriers To Discharge: Currently, as the patient is living alone, although his daughter is close by, he may require extended time for his ability to return towards his prior level of functioning, but h ava will work hard with the time given, but if need be, he may have to go to halfway prior to g oing home. Length Of Stay: About 12 to 14 days. Disposition: Expected to be home with continued therapy via Home Health. Prognosis: At this point is good. Code Status: Full code. Rehab Specific Goals: 1. Become independent with upper and lower body dressing and donning and doffing footwear. 2. Independently mobilize at least household distances or at least 250 feet with a rolling walker and wheelchair and go up and down 10 steps with bilateral handrails. 3. Independently perform all cognitive functioning. 4. Independently manage all his medications and his ability to take care of himself while in hospital . The above goals were reviewed with Mr. Vallejo and he is in agreement. By signing this document, I acknowledge I personally performed a full physical examination on Mr. Vallejo no later than 24 hours after his admission to the inpatient rehabilitation facility and determined t hat he is able to tolerate the above course of treatment at an intensive level for a reasonable perio d of time. A detailed individualized plan of care for him will be completed by hospital day 4 based on the preadmission screen, history and phy sical, and therapy evaluations. FLETCHER/BURAK Voice ID: [id number]
[2024-08-01 06:00] LABS: Absolute Basophils 0.1 K/uL (0-0.5); Absolute Eosinophils 0.3 K/uL (0-0.5); Absolute Lymphocytes (CBC) 0.7 K/uL (0.7-4.9); Absolute Monocytes 0.7 K/uL (0.1-1.3); Absolute Neutrophil 4.7 K/uL (1.8-8.0); Basophils % 0.8 % (0-1.3); Eosinophils % 4.7 % (0-4.4); Hematocrit 26.3 % (39.6-49.0); Hemoglobin 8.4 g/dL (13.6-17.9); Lymphocytes % 10.7 % (15.3-44.8); MCH 27.7 pg (27.0-35.0); MCHC 32.2 g/dL (32.0-36.0); MCV 86.3 fL (80-100); MPV 7.6 fL (7.6-11.3); Monocytes % 11.3 % (3.3-12.3); Neutrophils % 72.5 % (41.7-73.7); Platelets 226 thou/uL (152-406); RBC Red Blood Cell Count 3.05 M/uL (4.33-5.43); Red Cell Distribution Width 19.9 % (12.1-15.2)
[2024-08-01 06:24] LABS: Albumin 2.5 g/dL (3.4-5.0); Anion Gap 5.9 mEq/L (5.0-15.0); Magnesium 2.6 mg/dL (1.6-2.4); Potassium 3.9 mEq/L (3.5-5.1); Prealbumin 13.3 mg/dL (20-40)
[2024-08-01] MEDS: LEVOTHYROXINE SOD 0.025 MG TAB PO SCH (06:29)
[2024-08-01] MEDS: CLOPIDOGREL 75 MG TABLET PO SCH (08:46)
[2024-08-01] MEDS: ESCITALOPRAM 20 MG TAB PO SCH (08:47)
[2024-08-01] MEDS: FERROUS SULFATE 325 MG TAB PO SCH (08:48)
[2024-08-01] MEDS: DOCUSATE NA/SENNA CONC 1 TAB PO SCH (08:48)
[2024-08-01] MEDS: AMIODARONE HCL 200 MG TAB PO SCH (08:49)
[2024-08-01] MEDS: SPIRONOLACTONE 25 MG TABLET PO SCH (10:22)
[2024-08-01] MEDS ORDERED: MAGNESIUM HYDROXIDE 8% 30 ML PO PRN (13:25)
[2024-08-01] MEDS: ENSURE ENLIVE 237 ML CAN PO SCH (19:39)
--- NOTE | 2024-08-02 01:39 | PN ---
Date of Progress Note: 08/01/2024 Time Of Service: 1:15 p.m. Subjective: Mr. Vallejo is resting comfortably in bed. at the bedside. He is very happy so far wi th his therapy, able to recall stories from the past. Says he knows and many of these bas [employer] players and even Stevie Valdez as well and he is actually very happy so far with his therapy. Says he is getting stronger, improving his ability to mobilize and oxygenate without having to stop p rematurely. Objective: He denies any fevers, chills, nausea, vomiting, myalgias, or arthralgias. No other compl aints are noted. Physical Examination: Vital Signs: Blood pressure ranged systolic 108 to 153 over 51 to 57, pulse range 61 to 65, respirat ory rate is 14 to 18, temperature 98.2, oxygen 94%, weight 178 pounds, height 5 feet 6 inches, BMI 28 .7. General: Mr. Vallejo is resting comfortably in bed. HEENT: He is normocephalic, atraumatic. Sclerae anicteric. Oropharynx pink, moist. Neck: Supple. Chest: Clear. Extremities: He has good movement in the extremities without clubbing, cyanosis, or edema. Neurological: Diffuse weakness. No focal findings in upper or lower extremities. Laboratory Studies: White blood cell count 6.3, hemoglobin 8.4, platelets are 226. Sodium 141, pota ssium 3.9, chloride 103, carbon dioxide 36, BUN 25, creatinine 1.4. Hemoglobin A1c 5.1. Calcium 9.0 , magnesium 2.6, albumin 2.5, prealbumin 13.3. Urinalysis shows 1+ urobilinogen, leukocyte esterase 75, pH 8.5, trace budding yeast, otherwise unremarkable. X-ray/imaging: No new x-rays or imaging. Medications: Tylenol 500 mg every 6 hours as needed, amiodarone 200 mg daily, Lipitor 40 mg at bedti me, cefdinir 300 mg twice daily from 07/31 to 08/04, Zyrtec 10 mg daily, Plavix 75 mg daily, Cardura 2 mg at bedtime, Lexapro 10 mg daily, ferrous sulfate 325 mg daily, Lasix 40 mg twice daily, Synthroi d 0.025 mg daily, milk of magnesia 30 mL daily, Antivert 25 mg twice daily as needed, melatonin 3 mg at bedtime, Ensure Enlive 237 mL twice daily, Zofran 4 mg every 8 hours as needed, Protonix 40 mg twi ce daily, Senokot S one at bedtime, Aldactone 25 mg daily. Progress Made With Physical, Occupational, And Speech Therapy: Today with physical therapy, he compl eted gait training 40 feet twice with moderate assistance maximal assistance required help . [id number] transfers done with moderate assistance. Completed sit to supine mobilization with m oderate assistance. Regarding occupational therapy, he was able to shower with moderate assistance. Completed upper body dressing with minimum assistance. Start his ADLs including toileting and compl eted that with maximal assistance in perianal care and clothing management. Assessment: Mr. Vallejo is an 84-year-old patient admitted to the inpatient rehabilitation unit with CHF exacerbation, mixed diastolic and systolic. He is making good progress, so he just got to the unit now on day #2. He still has decreased mobility, decreased physical functioning, requires fluid manag ement for CHF. He is on potassium-sparing diuretic, Senokot-S for constipation, which did improve af ter 4 days and had good bowel movement today, Protonix for GE reflux. We will continue Zofran for na usea, Ensure Enlive for malnutrition, melatonin again for insomnia, Antivert for any vertiginous symp toms, Synthroid for hypothyroidism, Lasix again for fluid management along with Aldactone, ferrous lin lfate for his anemia, Plavix for stroke risk reduction, Lipitor for dyslipidemia, amiodarone for hear t rate and blood pressure control. He has cefdinir continuing for antibiotic prophylaxis. Slimeura i s also on board. In terms of the plan, we will continue with physical and occupational therapy, 3.5 hours, 5 of 7 days. We will continue with current list of medications and in terms of assessment. O f course, the patient is in with CHF exacerbation as noted and has still debility and decreased mobil ity, decreased physical functioning. His comorbidities are not negatively impacting his rehabilitation and he is just beginning therapy. He is cognitively intact and participating well . LB/CEML Voice ID: [id number] Report ID: [id number]
--- NOTE | 2024-08-02 22:44 | PN ---
Date of Progress Note: 08/02/2024 Time Of Service: 1:15 p.m. Subjective: Mr. Vallejo is doing well, resting comfortably, in no acute distress, has no new issues, has CHF exacerbation. He is doing very well, improving his strength with incentive spirometry and mobil izing in a better way. Objective: No fevers, chills, nausea, vomiting, myalgias, arthralgias, rash, or other complaints. Physical Examination: Vital Signs: Blood pressure 130/48, pulse 66, respiratory rate 18, temperature 97.9, oxygen saturati on 94%. Weight 178 pounds, height 5 feet 6 inches, BMI 28.7. General: Mr. Vallejo again is resting comfortably. He is in no significant distress. He is able to mob ilize a little bit better, transfer better, and has more endurance. Laboratory Studies: White blood cell count 6.5, hemoglobin 8.4, platelets 226. Sodium 141, potassiu m 3.9, chloride 103, carbon dioxide 36, BUN 25, creatinine 1.14, hemoglobin A1c 5.1, calcium 9.0, mag nesium 2.6, albumin 2.5, prealbumin 13.3. Urinalysis; 1+ urobilinogen, leukocyte esterase 75, pH 8.5 , trace budding yeasts, and no growth on any cultures. X-ray/imaging: No new x-rays or imaging. Medications: His medications have been reviewed. He does have Plavix 75 mg daily, Lipitor 40 mg at bedtime, Cordarone 200 mg daily, Cardura 2 mg daily, Lexapro 10 mg daily, ferrous sulfate 325 mg tyshawn y, Lasix 40 mg twice daily, Synthroid 0.025 mg daily. He has Antivert for complaining of some cough and postnasal drip. He does have Zofran for nausea, Ensure Enlive for malnutrition, Senokot for cons tipation and that has been addressed adequately. Progress Made With Physical And Occupational Therapy: With physical therapy today, he did ambulate 2 0 feet 4 times with contact guard to minimum assistance with a rolling walker, did refuse to walk any further. Bed mobilization done with minimum assistance to moderate assistance. He was able to go u p and down 5 steps with minimum to moderate assistance. Mobilized a wheelchair 40 feet 6 times with contact guard to minimum assistance. With occupational therapy, minimum assistance for [id number] transfers and for [id number] transfers, contact guard assistance to edge of bed. Toilet hygiene d one with min assist for pulling up of pants. Assessment: Mr. Vallejo is an 84-year-old patient with CHF exacerbation. He has decreased mobility, dec reased physical functioning, and in addition, GE reflux, nausea, insomnia, malnutrition, constipation , hypothyroidism. Plan: He will continue with physical and occupational therapy 3 hours a day, 5 of 7 days. Continue with his list of comorbid medications which are noted above. He will have DVT prophylaxis as noted o malcolm. His fluid management is with diuretic, Aldactone, and Lasix. He has Plavix for stroke risk reduction. He is encouraged to use incentive spirometry on ongoing basis to improve his endurance. LB/MODL Voice ID: [id number] Report ID: [id number]
[2024-08-03] MEDS: FE SULF/FA/VIT B COMP & C TAB PO SCH (08:39)
[2024-08-03] MEDS: ONDANSETRON 4 MG (ODT) TAB PO PRN (20:30)
[2024-08-03] MEDS: MECLIZINE HCL 12.5 MG TAB PO PRN (21:00)
--- NOTE | 2024-08-04 13:50 | P.RH.PN ---
Estimated Length of Stay: 12 Expected Discharge Date: 08/10/24 Discharge Disposition Plan: Home Family Support: Yes Jail Goal: Mobility, Transfers, Self Care Vital Signs: Last Vital Signs Temp 97.4 F 08/04/24 07:10 Pulse 67 08/04/24 09:05 Resp 18 08/04/24 07:10 BP 149/68 H 08/04/24 09:05 Pulse Ox 98 08/04/24 07:10 Laboratory: Laboratory Last Values WBC 6.50 thou/uL (4.3-10.9) 08/01/24 05:40 RBC 3.05 M/uL (4.33-5.43) L 08/01/24 05:40 Hgb 8.4 g/dL (13.6-17.9) L 08/01/24 05:40 Hct 26.3 % (39.6-49.0) L 08/01/24 05:40 MCV 86.3 fL (80-100) 08/01/24 05:40 MCH 27.7 pg (27.0-35.0) 08/01/24 05:40 MCHC 32.2 g/dL (32.0-36.0) 08/01/24 05:40 RDW 19.9 % (12.1-15.2) H 08/01/24 05:40 Plt Count 226 thou/uL (152-406) 08/01/24 05:40 MPV 7.6 fL (7.6-11.3) 08/01/24 05:40 Neutrophils % 72.5 % (41.7-73.7) 08/01/24 05:40 Lymphocytes % 10.7 % (15.3-44.8) L 08/01/24 05:40 Monocytes % 11.3 % (3.3-12.3) 08/01/24 05:40 Eosinophils % 4.7 % (0-4.4) H 08/01/24 05:40 Basophils % 0.8 % (0-1.3) 08/01/24 05:40 Absolute Neutrophils 4.7 K/uL (1.8-8.0) 08/01/24 05:40 Absolute Lymphocytes 0.7 K/uL (0.7-4.9) 08/01/24 05:40 Absolute Monocytes 0.7 K/uL (0.1-1.3) 08/01/24 05:40 Absolute Eosinophils 0.3 K/uL (0-0.5) 08/01/24 05:40 Absolute Basophils 0.1 K/uL (0-0.5) 08/01/24 05:40 Sodium 141 mEq/L (136-145) 08/01/24 05:40 Potassium 3.9 mEq/L (3.5-5.1) 08/01/24 05:40 Chloride 103 mEq/L (98-107) 08/01/24 05:40 Carbon Dioxide 36 mEq/L (21-32) H 08/01/24 05:40 Anion Gap 5.9 mEq/L (5.0-15.0) 08/01/24 05:40 BUN 25 mg/dL (7-18) H 08/01/24 05:40 Creatinine 1.40 mg/dL (0.70-1.30) H 08/01/24 05:40 Est GFR (CKD-EPI) 50 ml/min (=/>90) L 08/01/24 05:40 Glucose 90 mg/dL (74-106) 08/01/24 05:40 Hemoglobin A1c 5.1 % (4.2-6.3) 08/01/24 05:40 Calcium 9.0 mg/dL (8.5-10.1) 08/01/24 05:40 Magnesium 2.6 mg/dL (1.6-2.4) H 08/01/24 05:40 Albumin 2.5 g/dL (3.4-5.0) L 08/01/24 05:40 Prealbumin 13.3 mg/dL (20-40) L 08/01/24 05:40 Urine Color Cancelled 07/31/24 18:42 Urine Clarity Cancelled 07/31/24 18:42 Urine pH Cancelled 07/31/24 18:42 Ur Specific [place] Cancelled 07/31/24 18:42 Glucose (UA)(Auto) Cancelled 07/31/24 18:42 Urine Ketones Cancelled 07/31/24 18:42 Urine Blood Cancelled 07/31/24 18:42 Urine Nitrite Cancelled 07/31/24 18:42 Urine Bilirubin Cancelled 07/31/24 18:42 Urine Urobilinogen Cancelled 07/31/24 18:42 Ur Leukocyte Esterase Cancelled 07/31/24 18:42 Urine RBC Cancelled 07/31/24 18:42 Urine Red Cell Clumps Cancelled 07/31/24 18:42 Urine WBC Cancelled 07/31/24 18:42 Urine WBC Clumps Cancelled 07/31/24 18:42 Ur Squamous Epith Cells Cancelled 07/31/24 18:42 U Non-Squamous Epi Cells Cancelled 07/31/24 18:42 Ur Transition Epith Cell Cancelled 07/31/24 18:42 Ur Renal Epithelial Cell Cancelled 07/31/24 18:42 Calcium Carbonate Cryst Cancelled 07/31/24 18:42 Calcium Oxalate Crystal Cancelled 07/31/24 18:42 Leucine Crystals Cancelled 07/31/24 18:42 Cystine Crystals Cancelled 07/31/24 18:42 Uric Acid Crystals Cancelled 07/31/24 18:42 Triple Phos Crystals Cancelled 07/31/24 18:42 Tyrosine Crystals Cancelled 07/31/24 18:42 Unidentified Crystals Cancelled 07/31/24 18:42 Amorphous Crystals Cancelled 07/31/24 18:42 Urine Bacteria Cancelled 07/31/24 18:42 Hyaline Casts Cancelled 07/31/24 18:42 Granular Casts Cancelled 07/31/24 18:42 Waxy Casts Cancelled 07/31/24 18:42 RBC Casts Cancelled 07/31/24 18:42 WBC Casts Cancelled 07/31/24 18:42 Urine Mucus Cancelled 07/31/24 18:42 Urine Trichomonas Cancelled 07/31/24 18:42 Ur Yeast w Hyphae Cancelled 07/31/24 18:42 Urine Yeast (Budding) Cancelled 07/31/24 18:42 Urine Sperm Cancelled 07/31/24 18:42 Ur Oval Fat Bodies Cancelled 07/31/24 18:42 Urine Culture Reflexed Not needed 07/31/24 17:45 Urine Total Protein Cancelled 07/31/24 18:42 Urine Ascorbic Acid Cancelled 07/31/24 18:42 Urine Fat Cancelled 07/31/24 18:42 Weight: 178 lb Wound Present: No Closed Surgical Incision Present: No Negative Pressure Wound Therapy Present: No Physician Update: Labs reviewed and are stable. Mildly dehydrated and may require mild IV hydration. Bilateral foot drop with AFOs. Plans to go home with home health. Steppage gait with limited walking without the AFOs. RW 50' X 2 with mod assist. Bed mobility mod assist. Met 04/10 STG. Mod assist toileting, lower body dressing and transfers. Supervision with upper body dressing. Needs encouragement to participate with therapy. Summary: Patient's care plan and halfway goals have been reviewed and revised as necessary. Please see the Rehabilitation Signature page for all necessary signatures.
--- NOTE | 2024-08-04 17:04 | RAD REPORT ---
Exam:Abdomen 1 View (KUB) Clinical history: Abdominal pain. Vomiting FINDINGS: Air is present within nondilated small bowel in a nonspecific fashion. Air is present throughout portions of the colon. No obstruction seen. Moderate amount of stools present within the colon. No significant abnormal calcification displayed.
[2024-08-04] MEDS: PROMETHAZINE 25 MG TABLET PO PRN (20:36)
[2024-08-05] MEDS: POLYETHYL GLY 3350 17 GM/DOSE PO SCH (20:30)
[2024-08-06 06:28] LABS: Absolute Eosinophils 0.3 K/uL (0-0.5); Absolute Lymphocytes (CBC) 0.5 K/uL (0.7-4.9); Absolute Monocytes 0.8 K/uL (0.1-1.3); Absolute Neutrophil 4.8 K/uL (1.8-8.0); Basophils % 0.7 % (0-1.3); Eosinophils % 5.2 % (0-4.4); Hematocrit 29.9 % (39.6-49.0); Hemoglobin 9.8 g/dL (13.6-17.9); Lymphocytes % 8.3 % (15.3-44.8); MCHC 32.7 g/dL (32.0-36.0); MCV 85.5 fL (80-100); MPV 7.4 fL (7.6-11.3); Monocytes % 11.9 % (3.3-12.3); Neutrophils % 73.9 % (41.7-73.7); Platelets 319 thou/uL (152-406)
[2024-08-06 06:42] LABS: Anion Gap 4.8 mEq/L (5.0-15.0); Potassium 3.8 mEq/L (3.5-5.1)
[2024-08-07] MEDS: ACETAMINOPHEN 500 MG TAB PO PRN (02:00)
[2024-08-07 17:38] VITALS: BMI 27.2
--- NOTE | 2024-08-07 23:42 | PN ---
Date of Progress Note: 08/07/2024 Time Of Service: 1:35 p.m. Subjective: Mr. Vallejo is resting comfortably in bed. He still has some mild shortness of breath. He does not want to wear CPAP at night. He does have the incentive spirometry, but uses it sparingly. Otherwise, no new complaints. Objective: He denies any fevers, chills, nausea, vomiting. No significant myalgias, arthralgias, or rash or other complaints. Physical Examination: Vital Signs: Blood pressure 128/42, pulse 64, respiratory rate 18, temperature 98.1, oxygen saturati on 97%. General: Again, Mr. Vallejo is resting comfortably. He is in no significant distress. Again, mild shor tness of breath with exertion and with incentive spirometry, he does get about 750 cc. He has again no focal deficits. Just diffuse weakness in upper and lower extremities. Laboratory Studies: No new laboratory studies except on yesterday, sodium 138, potassium 3.8, his BU N is 32, creatinine 1.95, consistent with some mild dehydration, glucose 85, calcium 9.0, hemoglobin 9.8, and white blood cell 6.5, platelets are 319. It is noted that the patient will receive IV fluid s. He will have a bolus of 500 cc and then 125 cc an hour to continue a liter. Progress Made With Physical And Occupational Therapy: With physical therapy today, he did supine-to- sit transfers with minimum assistance and verbal cues. Also, multiple [id number] transfers with mo derate assistance and verbal cues. He ambulated 25 feet with moderate assistance and verbal cues and mobilized a wheelchair 75 feet and then another 300 feet with standby assistance. With occupational therapy, supervision for toilet and shower transfers while he is at grab bars. Did engage in pelvic floor exercises and 7 x 15 sets and did well. Assessment: Mr. Vallejo is an 84-year-old patient with CHF exacerbation. He now has some diuresis and m ild dehydration will be gently rehydrated. Plan: He will continue with physical and occupational therapy, 3 hours a day, 5 of 7 days. We will do careful hydration, actually instead of fluid bolus, mild oral hydration and continue with diuretic s, but may be cutting back on the Aldactone and the Lasix. We will continue with Plavix for stroke r isk reduction and he is encouraged to use incentive spirometry. In terms of his comorbid impacting r ehabilitation, the CHF issue with balance being struck between diuresis and fluid management along wi th his renal function which is the attempt is not to set him into prerenal condition. LB/MODL Voice ID: [id number] Report ID: [id number]
[2024-08-08 05:33] LABS: Absolute Eosinophils 0.2 K/uL (0-0.5); Absolute Lymphocytes (CBC) 0.6 K/uL (0.7-4.9); Absolute Monocytes 0.9 K/uL (0.1-1.3); Absolute Neutrophil 7.7 K/uL (1.8-8.0); Basophils % 0.3 % (0-1.3); Eosinophils % 2.6 % (0-4.4); Hematocrit 34.2 % (39.6-49.0); Hemoglobin 11.1 g/dL (13.6-17.9); Lymphocytes % 5.9 % (15.3-44.8); MCH 27.7 pg (27.0-35.0); MCHC 32.5 g/dL (32.0-36.0); MCV 85.2 fL (80-100); MPV 7.7 fL (7.6-11.3); Monocytes % 9.5 % (3.3-12.3); Neutrophils % 81.7 % (41.7-73.7); Nucleated Red Blood Cells % 0.1 % (0-0); Platelets 355 thou/uL (152-406); RBC Red Blood Cell Count 4.01 M/uL (4.33-5.43); Red Cell Distribution Width 20.2 % (12.1-15.2)
[2024-08-08 05:51] LABS: Albumin 3.1 g/dL (3.4-5.0); Anion Gap 8.8 mEq/L (5.0-15.0); Magnesium 2.6 mg/dL (1.6-2.4); Potassium 3.8 mEq/L (3.5-5.1); Prealbumin 25.4 mg/dL (20-40)
[2024-08-08 06:01] LABS: Anisocytosis 1+; Blood Morphology Comment NOTED (NOT SEEN); Hypochromasia 1+; Microcytosis 1+; Platelet Estimate ADEQ; White Blood Cell Scan OK (OK)
--- NOTE | 2024-08-08 22:22 | PN ---
Date of Progress Note: 08/08/2024 Time Of Service: 1:30 p.m. Subjective: Mr. Vallejo is resting in a chair beside his bed. The therapist noted he was not as coopera tive today to complete therapy, did refuse a few times. He was encouraged to work hard, so he can go home and be safe when he is discharged. He did nod in agreement. Objective: Denies any fevers, chills, nausea, vomiting. He has mild fatigue, mild shortness of beto th. No other complaints on review of systems. Physical Examination: Vital Signs: Blood pressure 124/70, pulse 65, respiratory rate 16, temperature 97.6, oxygen saturati on 97%. General: Mr. Vallejo is resting comfortably in his chair beside the bed. HEENT: He is normocephalic, atraumatic. Sclerae anicteric. Oropharynx moist. Neck: Supple. Chest: Clear air movements bilaterally. Laboratory Studies: White blood cell count 9.4, hemoglobin 11.1, platelets 355. He did have sodium 138, potassium 3.8, chloride 98, his BUN is 35, creatinine did elevate today to 2.04, glucose 119. C alcium 9.1, magnesium 2.6, albumin 3.1. Prealbumin 25.4. Of note, the patient's Lasix at 40 mg twice daily will be cut to half to 20 mg twice daily, and he wi ll have some oral hydration encouraged and that will be done gently. Progress Made With Physical And Occupational Therapy: Today, with physical therapy, supine to sit tr ansfers done with minimum assistance and verbal cues for proper hand placement. Did perform multiple stand pivot transfers with moderate assistance. The patient ambulated 20 feet with moderate assista nce with a rolling walker and again declined any further therapy. He did mobilize a wheelchair 100 f eet twice with standby assistance. With occupational therapy, he did exercise well with appropriate rest breaks in between. We provided in terms of education about the importance of therapy participat ion for him to be able to discharge home and do as well as he could be. Did engage in bilateral uppe r extremity exercises with 2-pound dowel rods, every 3 sets of 20 to improve his strength. Did have rest breaks during the session. Assessment: Mr. Vallejo is an 84-year-old patient in rehabilitation unit with congestive heart failure e xacerbation. He does have a little bit of overdiuresis, and his Lasix will be cut in half. He will have some encouragement for hydration. He still has decreased mobility, decreased physical functioni ng, and did have some difficulty with participation today. Has dyslipidemia addressed with Lipitor; Plavix for stroke risk reduction; amiodarone for blood pressure control; Lexapro for depression; ferr ous sulfate for iron deficiency; Lasix for fluid management, again cut in half. He has Synthroid, co ntinue for hypothyroidism; Antivert for dizziness; melatonin for insomnia; HemocytePlus for iron defi ciency. He has Phenergan for nausea, Zofran as well for nausea. Plan: Continue with physical and occupational therapy 3.5 hours, 5 of 7 days and his Lasix was cut i n half. LB/MODL Voice ID: [id number] Report ID: [id number]
[2024-08-09] MEDS ORDERED: FUROSEMIDE 20 MG/ 2ML VIAL IV SCH (09:00)
[2024-08-09] MEDS: FUROSEMIDE 20 MG TABLET PO SCH (09:06)
--- NOTE | 2024-08-09 13:41 | P.RH.PN ---
Estimated Length of Stay: 12 Expected Discharge Date: 08/11/24 Discharge Disposition Plan: Home Family Support: Yes Long-Term Goal: Mobility, Transfers, Self Care Vital Signs: Last Vital Signs Temp 97.5 F 08/09/24 07:46 Pulse 61 08/09/24 09:08 Resp 18 08/09/24 07:46 BP 157/64 H 08/09/24 09:08 Pulse Ox 95 08/09/24 07:46 Laboratory: Laboratory Last Values WBC 9.40 thou/uL (4.3-10.9) 08/08/24 05:10 RBC 4.01 M/uL (4.33-5.43) L 08/08/24 05:10 Hgb 11.1 g/dL (13.6-17.9) L 08/08/24 05:10 Hct 34.2 % (39.6-49.0) L 08/08/24 05:10 MCV 85.2 fL (80-100) 08/08/24 05:10 MCH 27.7 pg (27.0-35.0) 08/08/24 05:10 MCHC 32.5 g/dL (32.0-36.0) 08/08/24 05:10 RDW 20.2 % (12.1-15.2) H 08/08/24 05:10 Plt Count 355 thou/uL (152-406) 08/08/24 05:10 MPV 7.7 fL (7.6-11.3) 08/08/24 05:10 Neutrophils % 81.7 % (41.7-73.7) H 08/08/24 05:10 Lymphocytes % 5.9 % (15.3-44.8) L 08/08/24 05:10 Monocytes % 9.5 % (3.3-12.3) 08/08/24 05:10 Eosinophils % 2.6 % (0-4.4) 08/08/24 05:10 Basophils % 0.3 % (0-1.3) 08/08/24 05:10 Absolute Neutrophils 7.7 K/uL (1.8-8.0) 08/08/24 05:10 Absolute Lymphocytes 0.6 K/uL (0.7-4.9) L 08/08/24 05:10 Absolute Monocytes 0.9 K/uL (0.1-1.3) 08/08/24 05:10 Absolute Eosinophils 0.2 K/uL (0-0.5) 08/08/24 05:10 Absolute Basophils 0.0 K/uL (0-0.5) 08/08/24 05:10 Platelet Estimate Adeq 08/08/24 05:10 Hypochromasia 1+ 08/08/24 05:10 Anisocytosis 1+ 08/08/24 05:10 Microcytosis 1+ 08/08/24 05:10 Morphology Comment Noted (NOT SEEN) 08/08/24 05:10 pH Cancelled 08/05/24 08:00 pCO2 Cancelled 08/05/24 08:00 pO2 Cancelled 08/05/24 08:00 HCO3 Cancelled 08/05/24 08:00 Base Excess Cancelled 08/05/24 08:00 Oxyhemoglobin Cancelled 08/05/24 08:00 ABG O2 Sat (Measured) Cancelled 08/05/24 08:00 ABG Carboxyhemoglobin Cancelled 08/05/24 08:00 ABG Methemoglobin Cancelled 08/05/24 08:00 Other Total Hgb Cancelled 08/05/24 08:00 Inspired O2 Cancelled 08/05/24 08:00 Sodium 138 mEq/L (136-145) 08/08/24 05:10 Potassium 3.8 mEq/L (3.5-5.1) 08/08/24 05:10 Chloride 98 mEq/L (98-107) 08/08/24 05:10 Carbon Dioxide 35 mEq/L (21-32) H 08/08/24 05:10 Anion Gap 8.8 mEq/L (5.0-15.0) 08/08/24 05:10 BUN 35 mg/dL (7-18) H 08/08/24 05:10 Creatinine 2.04 mg/dL (0.70-1.30) H 08/08/24 05:10 Est GFR (CKD-EPI) 32 ml/min (=/>90) L 08/08/24 05:10 Glucose 119 mg/dL (74-106) H 08/08/24 05:10 Hemoglobin A1c 5.1 % (4.2-6.3) 08/01/24 05:40 Calcium 9.1 mg/dL (8.5-10.1) 08/08/24 05:10 Magnesium 2.6 mg/dL (1.6-2.4) H 08/08/24 05:10 Albumin 3.1 g/dL (3.4-5.0) L 08/08/24 05:10 Prealbumin 25.4 mg/dL (20-40) 08/08/24 05:10 Urine Color Cancelled 07/31/24 18:42 Urine Clarity Cancelled 07/31/24 18:42 Urine pH Cancelled 07/31/24 18:42 Ur Specific [place] Cancelled 07/31/24 18:42 Glucose (UA)(Auto) Cancelled 07/31/24 18:42 Urine Ketones Cancelled 07/31/24 18:42 Urine Blood Cancelled 07/31/24 18:42 Urine Nitrite Cancelled 07/31/24 18:42 Urine Bilirubin Cancelled 07/31/24 18:42 Urine Urobilinogen Cancelled 07/31/24 18:42 Ur Leukocyte Esterase Cancelled 07/31/24 18:42 Urine RBC Cancelled 07/31/24 18:42 Urine Red Cell Clumps Cancelled 07/31/24 18:42 Urine WBC Cancelled 07/31/24 18:42 Urine WBC Clumps Cancelled 07/31/24 18:42 Ur Squamous Epith Cells Cancelled 07/31/24 18:42 U Non-Squamous Epi Cells Cancelled 07/31/24 18:42 Ur Transition Epith Cell Cancelled 07/31/24 18:42 Ur Renal Epithelial Cell Cancelled 07/31/24 18:42 Calcium Carbonate Cryst Cancelled 07/31/24 18:42 Calcium Oxalate Crystal Cancelled 07/31/24 18:42 Leucine Crystals Cancelled 07/31/24 18:42 Cystine Crystals Cancelled 07/31/24 18:42 Uric Acid Crystals Cancelled 07/31/24 18:42 Triple Phos Crystals Cancelled 07/31/24 18:42 Tyrosine Crystals Cancelled 07/31/24 18:42 Unidentified Crystals Cancelled 07/31/24 18:42 Amorphous Crystals Cancelled 07/31/24 18:42 Urine Bacteria Cancelled 07/31/24 18:42 Hyaline Casts Cancelled 07/31/24 18:42 Granular Casts Cancelled 07/31/24 18:42 Waxy Casts Cancelled 07/31/24 18:42 RBC Casts Cancelled 07/31/24 18:42 WBC Casts Cancelled 07/31/24 18:42 Urine Mucus Cancelled 07/31/24 18:42 Urine Trichomonas Cancelled 07/31/24 18:42 Ur Yeast w Hyphae Cancelled 07/31/24 18:42 Urine Yeast (Budding) Cancelled 07/31/24 18:42 Urine Sperm Cancelled 07/31/24 18:42 Ur Oval Fat Bodies Cancelled 07/31/24 18:42 Urine Culture Reflexed Not needed 07/31/24 17:45 Urine Total Protein Cancelled 07/31/24 18:42 Urine Ascorbic Acid Cancelled 07/31/24 18:42 Urine Fat Cancelled 07/31/24 18:42 Smear Scan Ok (OK) 08/08/24 05:10 Weight: 174 lb 1.6 oz Wound Present: No Closed Surgical Incision Present: No Negative Pressure Wound Therapy Present: No Physician Update: Labs reviewed and are stable with a 1.5L fluid restriction. His lasix was decreased by 1/2 with mild increased hydration. Not qualified for home O2 with sats at least 92% over night. Not wanting to do physical or occupational therapy. Bed mobility with CGA, min assist for getting leg into bed. Min assist piviot transfers. With OT he wanted to stay in bed. He is supervision with bathing CGA with lower body dressing. Lost balance with showering. Summary: Patient's care plan and long term acute care registered nurse goals have been reviewed and revised as necessary. Please see the Rehabilitation Signature page for all necessary signatures.
[2024-08-09 16:49] VITALS: O2SAT 94
[2024-08-10 05:27] LABS: Anion Gap 8.2 mEq/L (5.0-15.0); Magnesium 2.8 mg/dL (1.6-2.4); Potassium 4.2 mEq/L (3.5-5.1)
[2024-08-10 06:51] VITALS: BP 142/61; TEMP 96.9
== END 2024-08-10 15:05 | disposition home or self-care (01) | DRG 291 ==
LOC: 5TH 07-31 13:34
PROVIDERS: ADMIT Psychiatry & Neurology Neurology with Special Qualifications in Child Neurology; ATTEND Psychiatry & Neurology Neurology with Special Qualifications in Child Neurology
DX: I13.0 Hypertensive heart and chronic kidney disease with heart failure and stage 1 through stage 4 chronic kidney disease, or unspecified chronic kidney disease (principal); I50.43 Acute on chronic combined systolic (congestive) and diastolic (congestive) heart failure; E46 Unspecified protein-calorie malnutrition; N18.30 Chronic kidney disease, stage 3 unspecified; E11.22 Type 2 diabetes mellitus with diabetic chronic kidney disease; R13.10 Dysphagia, unspecified; R53.1 Weakness; R53.83 Other fatigue; E86.0 Dehydration; M21.372 Foot drop, left foot; M21.371 Foot drop, right foot; G47.33 Obstructive sleep apnea (adult) (pediatric); I48.91 Unspecified atrial fibrillation; E03.9 Hypothyroidism, unspecified; E78.5 Hyperlipidemia, unspecified; D50.9 Iron deficiency anemia, unspecified; N40.1 Benign prostatic hyperplasia with lower urinary tract symptoms; N39.498 Other specified urinary incontinence; R05.9 Cough, unspecified; R09.82 Postnasal drip; R11.0 Nausea; K59.00 Constipation, unspecified; G47.00 Insomnia, unspecified; F32.A Depression, unspecified; I25.10 Atherosclerotic heart disease of native coronary artery without angina pectoris; K21.9 Gastro-esophageal reflux disease without esophagitis; Z95.5 Presence of coronary angioplasty implant and graft; Z68.28 Body mass index [BMI] 28.0-28.9, adult
CPT/HCPCS: 36415; 74018; 80048; 81001; 82040; 83036; 83735; 84134; 85025; 94660; 97110; 97116; 97162; 97165; 97530; 97542; J8597; Q0162; Q0169